=== PATIENT | male | born 1950 | race Caucasian/White ===

== ENCOUNTER 2022-01-10 09:27 | Inpatient (IN) ==
--- NOTE | 2022-01-10 09:46 | Emergency Department Note ---
Impression & Plan Wandering, Dementia, Elevated troponin, Elevated CPK ED Provider Note Provider: Feliciano Best MD DATE OF SERVICE: 01/10/2022 CHIEF COMPLAINT: Cofusion, found wandering HISTORY OF PRESENT ILLNESS: Patient is a 71-year-old gentleman history of dementia and hyperlipidemia brought by EMS today after being noted and found by neighbors that he was laying in their woodpile. EMS reports that neighbors evidently saw the patient walk in their yard around 715am this morning. Later went out and found him laying on the wood pile. Patient got here EMS reports that he told them that he was going to look at a horse. Patient evidently later then reported that he was in [facility]. Patient reports that he does live alone. He states he is unsure how he got outside. Unsure if he had breakfast this morning. Patient denies significant pain. EMS report the patient complained of his feet being cold and they tried to warn them. No other family members were noted at the area. Patient states he does have some known memory issues. Patient denies headache, chest pain, abdominal pain, nausea, or shortness of breath to me. REVIEW OF SYSTEMS: A total of 10 review of systems was obtained and negative except as stated above in the HPI. PAST MEDICAL HISTORY: As noted above MEDICATIONS: Reviewed medication listing from the medical record SOCIAL HISTORY: Lives by himself, smoking history PHYSICAL EXAM: GENERAL: alert and oriented to person in no acute distress on stretcher however is unsure of the events of this morning and states it is 2020 Head: normocephalic and atraumatic EYES: No injection, discharge or icterus. PERRL, EOMI. NECK: Trachea midline. Supple. ENT: Mucous membranes pink and moist. LUNGS: Airway patent. No retractions. Breath sounds clear HEART: Regular rate and rhythm. No chest wall tenderness ABDOMEN: Soft and non-tender, without guarding or rebound. SKIN: Patient with some scattered bruising in the upper extremities and a few small scattered abrasions on the lower extremities. There is some slight redness of the bursal aspect of both feet without significant contusion or any open wounds noted here. EXTREMITIES: Without swelling, tenderness or deformity lower extremities as above with some abrasions and some redness to bilateral feet. No crepitus. No open wounds. Distal feet are a little bit cool to touch. 1+ bilateral DP pulses. NEUROLOGICAL: No focal deficits. No aphasia. No facial droop or slurred speech. Normal strength and tone in the extremities. Sensation to gross touch normal EK bpm sinus rhythm with PVC. No acute ST segment elevation or depression with a QTC of 501. CONTINUOUS CARDIAC MONITORING: was ordered and showed a heart rate of 70s bpm in normal sinus rhythm GCS 15. Patient's laboratory studies and imaging reviewed. Differential includes Infection, dehydration, metabolic abnormality, hypo/hyperglycemia, electrolyte disturbance, anemia, hypoxia, cardiac sources, intracerebral event, toxicologic, neurologic, as well as other pathologies. IMPRESSION/MEDICAL DECISION MAKING: History of dementia. Found wandering. Reviewed prior medical record. Patient called with some scattered bruising and abrasions on exam. Basic labs were completed. X-rays of the feet given some erythema here. X-rays were reassuring for radiology. Chest x-ray without significant findings. CT head without acute findings. Question if this is his underlying dementia. Blood work however does show some evidence elevated troponin today as well as an elevated CPK. Given some IV fluid. Patient denies active chest pain. Do not see significant cardiac history documented and do not see evidence of prior troponins here. Given this discussed the patient initially with concerns for safety at home with a wondering if further observation to trend his troponin and CPK further observation here may be beneficial. Given a dose of aspirin. States is okay to the states he just on some ice cream. DIAGNOSIS: Wandering, elevated troponin, dementia, elevated CPK DISPOSITION: Hospitalist will evaluate Patient was agreeable with this plan. Past Med/Surg History Medical History Advanced dementia DX DEMENTIA, UNSPECIFIED AT CURRENT TIME Anxiety and depression Cerebrovascular disease 07/2019 MRI showed mild chronic cerebrovascular disease Had negative EEG 08/2019 GI problem GROWTH PROTRUDING INTO STOMACH, DIARRHEA - REASON FOR UPCOMING PROCEDURE Hyperlipidemia Hypertension HX, RESOLVED Mood disorder On Citalopram Toenail fungus Surgical History History of total knee replacement RIGHT Family History Sister Breast cancer Other Family history of cancer Family history of diabetes mellitus Denies family history of Ovarian cancer Myocardial infarction Lung cancer Stroke Social History Smoking Status: Current every day smoker Age Started Using Tobacco: 13; Cigarettes Per Day: NOT SURE /ADVISED NPO; Second Hand Exposure: No; Do You Dip or Chew Tobacco: No; Tobacco Cessation Education Requested by Patient: No Hx Alcohol Use: No Hx Substance Use: No Preferred Language: Bulgarian Communication Ability: Impaired Communication Ability Comment: unable to read and write d.t congnition Visual Impairment: No Limitations Hearing Ability: Normal Buttonhole Maker Required: No Beliefs That Will Affect Care: None marital status: Single Current Living Situation: Alone Current Living Situation Comment: sister and his friend dilma check on him 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 Other Information That Helps Us Care for You: No Feels Safe at Home: Yes Seatbelt Use: always Assistive Devices: Denture - Upper and Denture - Lower Allergies Allergies Allergy/AdvReac Type Severity Reaction Status Date / Time No Known Allergies Allergy Mild Verified 12/04/21 15:31 Home Meds Home Medications Medication Instructions Recorded Confirmed atorvastatin 10 mg tablet 10 mg PO QAM 09/30/21 01/10/22 dicyclomine 10 mg capsule 10 mg PO TID 09/30/21 01/10/22 ibuprofen 200 mg capsule 200 mg PO UD PRN 09/30/21 01/10/22 donepezil 10 mg tablet 10 mg PO DAILY 12/04/21 01/10/22 pantoprazole 20 mg tablet,delayed 20 ea PO DAILY 12/04/21 01/10/22 release ciclopirox 8 units 01/10/22 ciclopirox 8 % topical solution 1 applic TOPICAL DAILY 01/10/22 01/10/22 loperamide 2 mg tablet 2 mg PO DAILY 01/10/22 01/10/22 mirtazapine 15 mg tablet 15 mg PO DAILY 01/10/22 01/10/22 Results & Data (ED) Vital Signs Vital Signs - 24 hr 01/10/22 09:53 01/10/22 10:47 01/10/22 12:00 Temperature 37.0 C Temperature Source Oral Pulse Rate 75 Pulse Rate [Finger] 78 75 Pulse Rhythm [Finger] Regular Respiratory Rate 18 18 20 Respiratory Depth Normal Blood Pressure 156/103 H Blood Pressure [Left Arm] 148/87 H 144/73 H Blood Pressure Mean 120 Blood Pressure Mean [Left Arm] 107 96 Blood Pressure Position [Left Arm] Lying Pulse Oximetry 96 97 Oxygen Delivery Method Room Air Room Air Sepsis Recent Fever Within 48 Hours No Sepsis New/Unexplained Change in Mental Status No Sepsis Action Taken by Nursing No Action Required Laboratory Data Result diagrams: 01/10/22 09:35 01/10/22 09:35 Lab Results 01/10/22 01/10/22 01/10/22 Range/Units 09:35 09:35 09:35 WBC 7.98 (4.8-10.8) K/uL RBC 4.06 L (4.7-6.1) M/uL Hgb 14.1 (14.0-18.0) g/dL Hct 39.8 L (42-52) % MCV 98.0 (80-100) fL MCH 34.7 H (25-34) pg MCHC 35.4 (32-36) g/dL RDW Std Deviation 45.3 (36.4-46.3) fL RDW Coeff of Deon 12.7 (11.5-14.5) % Plt Count 237 (130-400) K/uL MPV 9.9 (7.4-10.4) fL Immature Gran % (Auto) 0.1 % Neut % (Auto) 79.9 % Lymph % (Auto) 10.5 % [place] % (Auto) 8.6 % Eos % (Auto) 0.6 % Baso % (Auto) 0.3 % Neut # (Auto) 6.37 (1.4-6.5) K/uL Lymph # (Auto) 0.84 L (1.2-3.4) K/uL [place] # (Auto) 0.69 H (0.11-0.59) K/uL Eos # (Auto) 0.05 (0-0.5) K/uL Baso # (Auto) 0.02 (0-0.2) K/uL Immature Gran # (Auto) 0.01 (0.00-0.02) K/uL PT 10.4 (9.0-12.0) Seconds INR 1.0 (0.9-1.1) Sodium (136-145) mmol/L Potassium (3.5-5.1) mmol/L Chloride (98-107) mmol/L Carbon Dioxide (21-32) mmol/L Anion Gap (3-11) BUN (6-23) mg/dl Creatinine (0.6-1.4) mg/dl Est Cr Clr Drug Dosing ml/min Est GFR ( Amer) ml/min Est GFR (Non-Af Amer) ml/min BUN/Creatinine Ratio (10-20) Glucose (70-99(Fasting)) mg/dl Calcium (8.5-10.1) mg/dl Magnesium (1.7-2.4) mg/dl Total Bilirubin (0.2-1.0) mg/dl AST (13-39) U/L ALT (7-52) U/L Alkaline Phosphatase (34-104) U/L Total Creatine Kinase (30-223) U/L Troponin I High Sens 134.4 H* (0-20) pg/ml Total Protein (6.0-8.3) gm/dl Albumin (3.4-5.0) gm/dl Globulin (2.5-4.0) gm/dl Albumin/Globulin Ratio (0.9-2) TSH (0.300-4.500) uIu/ml Urine Color Urine Appearance (Clear) Urine pH (4.5-7.5) Ur Specific [place] (1.000-1.030) Urine Protein (Negative) Urine Glucose (UA) (Negative) Urine Ketones (Negative) Urine Blood (Negative) Urine Nitrite (Negative) Urine Bilirubin (Negative) Urine Urobilinogen (Negative) Ur Leukocyte Esterase (Negative) SARS-CoV-2, RNA, NAAT (NEGATIVE) 01/10/22 01/10/22 01/10/22 Range/Units 09:35 09:35 09:49 WBC (4.8-10.8) K/uL RBC (4.7-6.1) M/uL Hgb (14.0-18.0) g/dL Hct (42-52) % MCV (80-100) fL MCH (25-34) pg MCHC (32-36) g/dL RDW Std Deviation (36.4-46.3) fL RDW Coeff of Deon (11.5-14.5) % Plt Count (130-400) K/uL MPV (7.4-10.4) fL Immature Gran % (Auto) % Neut % (Auto) % Lymph % (Auto) % [place] % (Auto) % Eos % (Auto) % Baso % (Auto) % Neut # (Auto) (1.4-6.5) K/uL Lymph # (Auto) (1.2-3.4) K/uL [place] # (Auto) (0.11-0.59) K/uL Eos # (Auto) (0-0.5) K/uL Baso # (Auto) (0-0.2) K/uL Immature Gran # (Auto) (0.00-0.02) K/uL PT (9.0-12.0) Seconds INR (0.9-1.1) Sodium 142 (136-145) mmol/L Potassium 3.5 (3.5-5.1) mmol/L Chloride 108 H (98-107) mmol/L Carbon Dioxide 28 (21-32) mmol/L Anion Gap 6 (3-11) BUN 24 H (6-23) mg/dl Creatinine 0.73 (0.6-1.4) mg/dl Est Cr Clr Drug Dosing 89.4 ml/min Est GFR ( Amer) 107.4 ml/min Est GFR (Non-Af Amer) 92.7 ml/min BUN/Creatinine Ratio 32.9 H (10-20) Glucose 100 H (70-99(Fasting)) mg/dl Calcium 9.2 (8.5-10.1) mg/dl Magnesium 2.0 (1.7-2.4) mg/dl Total Bilirubin 0.8 (0.2-1.0) mg/dl AST 28 (13-39) U/L ALT 23 (7-52) U/L Alkaline Phosphatase 63 (34-104) U/L Total Creatine Kinase 664 H (30-223) U/L Troponin I High Sens (0-20) pg/ml Total Protein 6.4 (6.0-8.3) gm/dl Albumin 4.0 (3.4-5.0) gm/dl Globulin 2.4 L (2.5-4.0) gm/dl Albumin/Globulin Ratio 1.7 (0.9-2) TSH 1.406 (0.300-4.500) uIu/ml Urine Color Urine Appearance (Clear) Urine pH (4.5-7.5) Ur Specific [place] (1.000-1.030) Urine Protein (Negative) Urine Glucose (UA) (Negative) Urine Ketones (Negative) Urine Blood (Negative) Urine Nitrite (Negative) Urine Bilirubin (Negative) Urine Urobilinogen (Negative) Ur Leukocyte Esterase (Negative) SARS-CoV-2, RNA, NAAT NEGATIVE (NEGATIVE) 01/10/22 Range/Units 12:22 WBC (4.8-10.8) K/uL RBC (4.7-6.1) M/uL Hgb (14.0-18.0) g/dL Hct (42-52) % MCV (80-100) fL MCH (25-34) pg MCHC (32-36) g/dL RDW Std Deviation (36.4-46.3) fL RDW Coeff of Deon (11.5-14.5) % Plt Count (130-400) K/uL MPV (7.4-10.4) fL Immature Gran % (Auto) % Neut % (Auto) % Lymph % (Auto) % [place] % (Auto) % Eos % (Auto) % Baso % (Auto) % Neut # (Auto) (1.4-6.5) K/uL Lymph # (Auto) (1.2-3.4) K/uL [place] # (Auto) (0.11-0.59) K/uL Eos # (Auto) (0-0.5) K/uL Baso # (Auto) (0-0.2) K/uL Immature Gran # (Auto) (0.00-0.02) K/uL PT (9.0-12.0) Seconds INR (0.9-1.1) Sodium (136-145) mmol/L Potassium (3.5-5.1) mmol/L Chloride (98-107) mmol/L Carbon Dioxide (21-32) mmol/L Anion Gap (3-11) BUN (6-23) mg/dl Creatinine (0.6-1.4) mg/dl Est Cr Clr Drug Dosing ml/min Est GFR ( Amer) ml/min Est GFR (Non-Af Amer) ml/min BUN/Creatinine Ratio (10-20) Glucose (70-99(Fasting)) mg/dl Calcium (8.5-10.1) mg/dl Magnesium (1.7-2.4) mg/dl Total Bilirubin (0.2-1.0) mg/dl AST (13-39) U/L ALT (7-52) U/L Alkaline Phosphatase (34-104) U/L Total Creatine Kinase (30-223) U/L Troponin I High Sens (0-20) pg/ml Total Protein (6.0-8.3) gm/dl Albumin (3.4-5.0) gm/dl Globulin (2.5-4.0) gm/dl Albumin/Globulin Ratio (0.9-2) TSH (0.300-4.500) uIu/ml Urine Color Yellow Urine Appearance Clear (Clear) Urine pH 8.0 H (4.5-7.5) Ur Specific [place] 1.015 (1.000-1.030) Urine Protein Negative (Negative) Urine Glucose (UA) Negative (Negative) Urine Ketones Negative (Negative) Urine Blood Negative (Negative) Urine Nitrite Negative (Negative) Urine Bilirubin Negative (Negative) Urine Urobilinogen Negative (Negative) Ur Leukocyte Esterase Negative (Negative) SARS-CoV-2, RNA, NAAT (NEGATIVE) Administered Medications Dicyclomine HCl (Dicyclomine Hcl 10 Mg Cap) 10 mg PO TID AMANDO Stop: 02/09/22 14:59 Last Admin: 01/10/22 16:52 Dose: 10 mg Documented by: [id number] Sodium Chloride (Nss 1000ml) 1,000 mls @ 125 mls/hr IV .Q8H AMANDO Stop: 01/11/22 14:59 Last Admin: 01/10/22 16:55 Dose: 125 mls/hr Documented by: [id number] Mirtazapine (Mirtazapine Tab 15 Mg Tab) 15 mg PO DAILY AMANDO Stop: 02/09/22 14:59 Last Admin: 01/10/22 16:52 Dose: 15 mg Documented by: [id number] Miscellaneous (Ciclopirox 8%: Order Awaiting Action) 1 ea N/A QS AMANDO Stop: 02/09/22 15:59 Last Admin: 01/10/22 17:26 Dose: Not Given Documented by: [id number] Discontinued Medications Aspirin (Aspirin 81 Mg Chew) 324 mg PO NOW STA Stop: 01/10/22 11:08 Last Admin: 01/10/22 11:17 Dose: 324 mg Documented by: [id number] Sodium Chloride (Nss 1000ml) 1,000 mls @ 999 mls/hr IV .Q1H1M ONE Stop: 01/10/22 11:37 Last Infusion: 01/10/22 11:53 Dose: 0 mls/hr Documented by: [id number] Admin: 01/10/22 10:51 Dose: 999 mls/hr Documented by: [id number] Imaging Data Radiologist's Impression: Chest X-Ray 01/10/22 09:41 XR chest 1V portable CLINICAL HISTORY: confusion COMPARISON STUDY: Chest radiograph June 04, 2008. FINDINGS: Skin fold projects over the left chest. No pneumothorax or pleural effusion is present. Mild cardiomegaly is noted without evidence for pulmonary edema. There is a possible hiatal hernia. There is no consolidation to suggest pneumonia. IMPRESSION: 1. No acute cardiopulmonary findings. 2. Possible hiatal hernia. ACT 112: Negative or not required by law. Electronically signed by: Yosef Miller M.D. 01/10/2022 10:[address] 01/10/22 09:41 CT OF THE HEAD WITHOUT CONTRAST CLINICAL HISTORY: Confusion. COMPARISON STUDY: MRI of the brain August 14, 2019. CT DOSE: 614.27 mGy.cm TECHNIQUE: Helical axial images of the head were obtained without IV contrast. Automated exposure control was utilized for the study. A dose lowering technique was utilized adhering to the principles of ALARA. FINDINGS: No acute intracranial hemorrhage, midline shift or mass effect is present. The ventricular system is unremarkable. White matter hypodensity suggests small vessel disease. The basal cisterns are patent. No extra-axial collections are present. There are no findings to suggest acute dural sinus thrombosis or acute territorial infarct. No significant calvarial abnormalities are present. Visualized portions of the sinuses and mastoid air cells are clear. IMPRESSION: No acute intracranial findings. ACT 112: Negative or not required by law. Electronically signed by: Yosef Miller M.D. 01/10/2022 10:02 AM Foot X-Ray 01/10/22 09:44 XR foot LT min 3V routine CLINICAL HISTORY: redness, ?contusion COMPARISON: None FINDINGS: Tarsometatarsal joints are intact. No acute fracture within the left foot is noted. There is no radiographic evidence for acute osteomyelitis within the left foot. Moderate degenerative changes of the interphalangeal joint of the left great toe are present. There is mild osteophytosis of the left first metatarsophalangeal joint. IMPRESSION: No acute fracture or dislocation within the left foot. No evidence for acute osteomyelitis. ACT 112: Negative or not required by law. Electronically signed by: Yosef Miller M.D. 01/10/2022 10:54 AM Foot X-Ray 01/10/22 09:44 XR foot RT min 3V routine CLINICAL HISTORY: redness, ?contusion COMPARISON: None FINDINGS: Tarsometatarsal joints are intact. No acute fracture within the right foot is noted. There is an old, healed fracture of the proximal phalanx of the right fifth toe. No evidence for acute osteomyelitis. Moderate degenerative changes are noted within several articulations of the right foot. Sclerotic focus within the distal tuft of the distal phalanx of the right second toe is benign. IMPRESSION: No acute fracture or dislocation within the right foot. No radiographic evidence for acute osteomyelitis. ACT 112: Negative or not required by law. Electronically signed by: Yosef Miller M.D. 01/10/2022 10:53 AM Discharge Plan Visit Data Chief Complaint: Confusion Stated Complaint: AMS ED Provider: Feliciano Best Discharge Problem: Wandering, Dementia, Elevated troponin, Elevated CPK Patient Disposition: Admitted As Inpatient Discharge Instructions Interventions: ED Discharge Assessment Last Done: 01/10/22 13:39 Discharge Problem: Dementia Qualifiers: Dementia type: unspecified type Dementia behavioral disturbance: without behavioral disturbance Qualified Code(s): F03.90 - Unspecified dementia without behavioral disturbance
[2022-01-10 09:56] LABS: Basophils # (auto) 0.02 K/uL (0-0.2); Basophils % (auto) 0.3 %; Eosinophils # (auto) 0.05 K/uL (0-0.5); Eosinophils % (auto) 0.6 %; Hematocrit (blood only) 39.8 % (42-52); Hemoglobin 14.1 g/dL (14.0-18.0); Immature Granulocytes # (auto) 0.01 K/uL (0.00-0.02); Immature Granulocytes % (auto) 0.1 %; Lymphocytes # (auto) 0.84 K/uL (1.2-3.4); Lymphocytes % (auto) 10.5 %; Mean Corpuscular Hemoglobin 34.7 pg (25-34); Mean Corpuscular Hgb Conc 35.4 g/dL (32-36); Mean Platelet Volume 9.9 fL (7.4-10.4); Monocytes # (auto) 0.69 K/uL (0.11-0.59); Monocytes % (auto) 8.6 %; Neutrophils # (auto) 6.37 K/uL (1.4-6.5); Neutrophils % (auto) 79.9 %; Platelet Count 237 K/uL (130-400); RDW Coefficient of Variation 12.7 % (11.5-14.5); RDW Standard Deviation 45.3 fL (36.4-46.3); Red Blood Count 4.06 M/uL (4.7-6.1); White Blood Count 7.98 K/uL (4.8-10.8)
[2022-01-10 10:02] LABS: Prothrombin Time 10.4 Seconds (9.0-12.0)
--- NOTE | 2022-01-10 10:05 | CT Scan Report ---
CT OF THE HEAD WITHOUT CONTRAST CLINICAL HISTORY: Confusion. COMPARISON STUDY: MRI of the brain August 14, 2019. CT DOSE: 614.27 mGy.cm TECHNIQUE: Helical axial images of the head were obtained without IV contrast. Automated exposure con trol was utilized for the study. A dose lowering technique was utilized adhering to the principles o f ALARA. FINDINGS: No acute intracranial hemorrhage, midline shift or mass effect is present. The ventricular system is unremarkable. White matter hypodensity suggests small vessel disease. The basal cisterns ar e patent. No extra-axial collections are present. There are no findings to suggest acute dural sinus thrombosis or acute territorial infarct. No significant calvarial abnormalities are present. Visualiz ed portions of the sinuses and mastoid air cells are clear. IMPRESSION: No acute intracranial findings. ACT 112: Negative or not required by law. Electronically signed by: Yosef Miller M.D. 01/10/2022 10:02 AM
[2022-01-10 10:22] LABS: Albumin Globulin Ratio 1.7 (0.9-2); BUN Creatinine Ratio 32.9 (10-20); Bilirubin,Total 0.8 mg/dl (0.2-1.0); Calcium 9.2 mg/dl (8.5-10.1); Creatinine Clr Calc Pharmacy 89.4 ml/min; Est GFR (African American) 107.4 ml/min; Est GFR (Non-African American) 92.7 ml/min; Globulin 2.4 gm/dl (2.5-4.0); Potassium 3.5 mmol/L (3.5-5.1); Total Protein 6.4 gm/dl (6.0-8.3)
[2022-01-10] MEDS ORDERED: SODIUM CHLORIDE 0.9% 1000ML 1,000 ML IV ONE (10:37)
--- NOTE | 2022-01-10 10:48 | XRay Report ---
XR chest 1V portable CLINICAL HISTORY: confusion COMPARISON STUDY: Chest radiograph June 04, 2008. FINDINGS: Skin fold projects over the left chest. No pneumothorax or pleural effusion is present. Mil d cardiomegaly is noted without evidence for pulmonary edema. There is a possible hiatal hernia. Ther e is no consolidation to suggest pneumonia. IMPRESSION: 1. No acute cardiopulmonary findings. 2. Possible hiatal hernia. ACT 112: Negative or not required by law. Electronically signed by: Yosef Miller M.D. 01/10/2022 10:46 AM
--- NOTE | 2022-01-10 10:55 | XRay Report ---
XR foot LT min 3V routine CLINICAL HISTORY: redness, ?contusion COMPARISON: None FINDINGS: Tarsometatarsal joints are intact. No acute fracture within the left foot is noted. There is no radiographic evidence for acute osteomyelitis within the left foot. Moderate degenerative reyes es of the interphalangeal joint of the left great toe are present. There is mild osteophytosis of the left first metatarsophalangeal joint. IMPRESSION: No acute fracture or dislocation within the left foot. No evidence for acute osteomyeliti s. ACT 112: Negative or not required by law. Electronically signed by: Yosef Miller M.D. 01/10/2022 10:54 AM
--- NOTE | 2022-01-10 10:55 | XRay Report ---
XR foot RT min 3V routine CLINICAL HISTORY: redness, ?contusion COMPARISON: None FINDINGS: Tarsometatarsal joints are intact. No acute fracture within the right foot is noted. There is an old, healed fracture of the proximal phalanx of the right fifth toe. No evidence for acute ost eomyelitis. Moderate degenerative changes are noted within several articulations of the right foot. Sclerotic focus within the distal tuft of the distal phalanx of the right second toe is benign. IMPRESSION: No acute fracture or dislocation within the right foot. No radiographic evidence for acut e osteomyelitis. ACT 112: Negative or not required by law. Electronically signed by: Yosef Miller M.D. 01/10/2022 10:53 AM
[2022-01-10] MEDS ORDERED: ASPIRIN 81 MG CHEW PO STA (11:07)
[2022-01-10 12:50] LABS: Appearance Urine Clear (Clear); Bilirubin Urine Negative (Negative); Blood Urine Negative (Negative); Color Urine Yellow; Glucose Urine UA Negative (Negative); Ketones Urine Negative (Negative); Leukocyte Esterase Urine Negative (Negative); Nitrite Urine Negative (Negative); Protein Urine Negative (Negative); Specific Gravity Urine 1.015 (1.000-1.030); Urobilinogen Urine Negative (Negative)
--- NOTE | 2022-01-10 13:26 | Electrocardiogram Report ---
Test Reason : Blood Pressure : / mmHG Vent. Rate : 078 BPM Atrial Rate : 078 BPM P-R Int : 158 ms QRS Dur : 078 ms QT Int : 440 ms P-R-T Axes : -03 018 031 degrees QTc Int : 501 ms Poor data quality, interpretation may be adversely affected Sinus rhythm with occasional Premature ventricular complexes Prolonged QT Abnormal ECG When compared with ECG of 01-OCT-2021 09:07, Premature ventricular complexes are now Present Confirmed by Ravi García ([id number]) on 01/10/2022 1:25:38 PM Referred By: Confirmed By:Ravi García
--- NOTE | 2022-01-10 14:15 | History and Physical Report ---
DATE OF ADMISSION: 01/10/2022. CHIEF COMPLAINT: Confusion. HISTORY OF PRESENT ILLNESS: This is a 71-year-old male with past medical history significant for hypercholesterolemia, hypertension, history of CVA, history of GERD, history of mood disorder, history of dementia without behavioral disturbance, comes with confusion. The patient is following with neurology and it looks like he also got neuropsychological testing from 09/17/20[address] at [facility] [address] Fonseca. It looks like he has at least major neurocognitive disorder, unspecified, of moderate severity. It is particularly affecting his executive function, motor control, memory, and alternative attention impulsivity and conceptualization. It looks like the patient's medication citalopram was changed to mirtazapine, and he was also on donepezil and Namenda was added. The patient lives alone. Sister checks on him. Sister says after starting Namenda he got more hallucinations. They stopped giving it to him and also she stayed with him on last Wednesday and Wednesday and on Wednesday was doing okay, so she went to take care of her . Sister says someone comes to check on him every day to give him medications, to give him food and check on him. He eats regular food. Ambulates without support, but is having some ambulatory dysfunction lately,also seems lately requiring more assistance with feeding and dressing.. He is eating and swallowing okay. Today, he was found by his neighbors, the neighbors found him in their yard around 7:15 a.m. and later they found him sleeping in the wooden pile and EMS brought him here. In the ER, CT of the head was okay. There were some bruises on his feet. Foot x-ray was okay. Chest x-ray looks okay. Hemodynamically stable. Labs are mostly unremarkable except troponin high sensitivity was 134 and total creatinine kinase 664. Urinalysis pending. SARS-CoV-2 rapid test is negative. The patient is currently resting comfortably. Can tell his name, knows his date of , but does not know that he is in the hospital and could not tell which month is this, but able to obey simple commands. Denies any headache, denies any chest pain, denies any shortness of breath. Denies nausea, denies abdominal pain. Says he has ongoing diarrhea for some time and states he ambulates without any support. Says his urination has decreased slightly. ALLERGIES: No known drug allergies. PAST MEDICAL HISTORY: As mentioned above. PAST SURGICAL HISTORY: Right total knee arthroplasty, colonoscopy, EGDs, right knee meniscectomy. MEDICATIONS: The patient is on atorvastatin 10 mg p.o. a.m., dicyclomine 10 mg p.o. t.i.d., donepezil 10 mg p.o. daily, ibuprofen p.r.n., mirtazapine 50 mg p.o. daily, Protonix 20 mg p.o. daily. FAMILY HISTORY: Significant for brother has alcoholism; sister has arthritis, breast cancer, dementia, diabetes, hyperlipidemia; uncle has prostate cancer; father had heart disorder at age of 37; mother has dementia. SOCIAL HISTORY: He currently lives alone. He smoked cigars in the past. Currently, no alcoholism. No drug use. REVIEW OF SYSTEMS: Could not get review of systems as the patient is confused. PHYSICAL EXAMINATION: GENERAL: The patient is of moderate build, not in acute distress. VITAL SIGNS: Temperature 37, pulse 75, respiratory rate 20, blood pressure 144/73, oxygen 97% on room air. HEENT: Pupils equal, round and reactive to light. Oral mucosa moist. LUNGS: No JVD, no neck masses. CARDIOVASCULAR: S1 and S2 heard. Regular rate and rhythm. No murmur, no gallop. RESPIRATORY SYSTEM: Normal AP diameter. No accessory muscle use. No wheezing, no crackles. ABDOMEN: Soft. Bowel sounds are present, nontender, no distention. CENTRAL NERVOUS SYSTEM: Alert and oriented to name only. Speech is clear. No facial droop. Obeys simple commands. Moves extremities. EXTREMITIES: Bilateral lower extremity bruise seen on the feet, more on the left side. No edema or erythema seen. LABORATORY: WBC 7.9, hemoglobin 14.1, hematocrit 39.8, platelets 237. PT 10.4, INR 1. Sodium 142, potassium 3.5, chloride 108, CO2 of 28, BUN 24, creatinine 0.7, serum glucose 100, calcium 9.2, magnesium 2, total bilirubin 0.8, AST 28, ALT 23, alkaline phosphatase 63, total creatine kinase 664. Troponin I high sensitivity 134. TSH 1.4. Urinalysis pending. SARS-CoV-2 rapid test negative. IMAGING DATA: Right foot x-ray, no acute findings. Let foot x-ray, no acute findings. CT of the head, no acute intracranial findings. Chest x-ray, no acute findings, possible hiatal hernia. EKG: Sinus rhythm with occasional PVCs at a rate of 78, prolonged QTc at 501. ASSESSMENT AND PLAN: This is a 71-year-old male who presents with confusion. 1. Confusion: Most likely worsening dementia. Will rule out transient ischemic attack, cerebrovascular accident, with MRI scan. CT of the head is okay. Labs look okay. Will follow urinalysis. Monitor in the medical floor. Neurology consult in the a.m. The patient is having dementia and he is on mirtazapine and donepezil. Recently, Namenda was added, but it was stopped by the family as the patient is getting hallucinations. Await neurology input. Social Service to help with discharge planning. The patient may need more help at home versus detention placement. May need office of aging help.Monitor for delerium 2. History of hyperlipidemia: Continue statin. 3. History of mood disorder: Continue mirtazapine. 4. Gastroesophageal reflux disease: Continue Protonix. 5. History of hypertension: Currently not on any medication. Will monitor the blood pressure. 6. History of cerebrovascular accident: On statin. The patient was given a dose of aspirin in the ER. Will continue with the baby aspirin. Follow the MRI scan. 7. Elevated troponin. EKG ok. denies any syptoms.Will follow serial CE and echo. 8. Mild elevation cpk. Getting fluids. Follow repeat levels. 9. Prolonged QT. QTC 503. Avod Qt prolonging drugs. Will follow repeat ekg. 10.. Deep venous thrombosis prophylaxis: Sequential compression devices and heparin subQ. DISPOSITION: Closely monitor in the medical floor. PT/OT prior to discharge. Social Service to help with discharge planning. CODE STATUS: DNR/DNI as per my discussion with the sister. Job ID: [id number] [facility]
[2022-01-10] MEDS ORDERED: ACETAMINOPHEN 325 MG TAB PO PRN (15:00)
[2022-01-10] MEDS: MIRTAZAPINE TAB 15 MG TAB PO SCH (16:52)
[2022-01-10] MEDS: DICYCLOMINE HCL 10 MG CAP PO SCH ×2 (16:52→19:28)
[2022-01-10] MEDS: SODIUM CHLORIDE 0.9% 1000ML 1,000 ML IV SCH (16:55)
[2022-01-10] MEDS ORDERED: OLANZapine 10 MG/2.1 ML SDV IM STA (17:55)
[2022-01-10] MEDS: HEPARIN SOD 5,000 UNIT/0.5 ML VIAL SQ SCH (20:21)
[2022-01-11] MEDS ORDERED: SODIUM CHLORIDE 0.9% 1000ML 1,000 ML IV ONE (02:02)
[2022-01-11] MEDS: SODIUM CHLORIDE 0.9% 1000ML 1,000 ML IV SCH ×2 (02:21→19:00)
[2022-01-11] MEDS ORDERED: OLANZAPINE 2.5 MG TAB PO STA (02:32)
[2022-01-11 05:49] LABS: Basophils # (auto) 0.05 K/uL (0-0.2); Basophils % (auto) 0.8 %; Eosinophils # (auto) 0.38 K/uL (0-0.5); Eosinophils % (auto) 6.1 %; Hematocrit (blood only) 43.2 % (42-52); Hemoglobin 14.7 g/dL (14.0-18.0); Immature Granulocytes # (auto) 0.01 K/uL (0.00-0.02); Immature Granulocytes % (auto) 0.2 %; Lymphocytes # (auto) 1.34 K/uL (1.2-3.4); Lymphocytes % (auto) 21.6 %; Mean Corpuscular Hemoglobin 33.2 pg (25-34); Mean Corpuscular Volume 97.5 fL (80-100); Mean Platelet Volume 9.7 fL (7.4-10.4); Monocytes # (auto) 0.51 K/uL (0.11-0.59); Monocytes % (auto) 8.2 %; Neutrophils % (auto) 63.1 %; Platelet Count 228 K/uL (130-400); RDW Coefficient of Variation 12.9 % (11.5-14.5); RDW Standard Deviation 45.9 fL (36.4-46.3); Red Blood Count 4.43 M/uL (4.7-6.1); White Blood Count 6.19 K/uL (4.8-10.8)
[2022-01-11 06:04] LABS: Calcium 8.8 mg/dl (8.5-10.1); Est GFR (African American) 118.1 ml/min; Est GFR (Non-African American) 101.9 ml/min; Potassium 3.3 mmol/L (3.5-5.1)
[2022-01-11 06:14] LABS: Troponin I High Sensitivity 195.5 pg/ml (0-20)
[2022-01-11] MEDS: OLANZapine 10 MG/2.1 ML SDV IM PRN ×3 (07:24→20:17)
[2022-01-11] MEDS: PANTOprazole 40 MG TAB PO SCH (07:33)
[2022-01-11] MEDS: DONEPEZIL HCL 10 MG TAB PO SCH (07:33)
[2022-01-11] MEDS: MIRTAZAPINE TAB 15 MG TAB PO SCH (07:33)
[2022-01-11] MEDS: ASPIRIN 81 MG ECTAB PO SCH (07:33)
[2022-01-11] MEDS: DICYCLOMINE HCL 10 MG CAP PO SCH ×3 (07:33→20:18)
[2022-01-11] MEDS: HEPARIN SOD 5,000 UNIT/0.5 ML VIAL SQ SCH ×2 (07:34→20:07)
[2022-01-11] MEDS: ADVANCED PROBIOTIC 1250 MG CAPSULE PO SCH (07:34)
[2022-01-11] MEDS: ATORVASTATIN 10 MG TAB PO SCH (07:34)
[2022-01-11] MEDS ORDERED: POTASSIUM CHLORIDE CRTAB 20 MEQ TABCR PO STA (09:28)
[2022-01-11] MEDS ORDERED: levETIRAcetam 1,500 MG in 0.9 % SODIUM CHLORIDE 100 ML IV STA (14:52)
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
[2022-01-11] MEDS ORDERED: PIPERACILL/TAZOBAC CONSULT ACTIVE PRN (18:51)
[2022-01-11] MEDS ORDERED: PIPERACILLIN/TAZOBACTAM 3.375 GM in DEXTROSE 5% 100 ML IV ONE (19:00)
[2022-01-11 20:03] LABS: Appearance Urine Clear (Clear); Bacteria Urine Automated Negative (Negative); Bilirubin Urine Negative (Negative); Blood Urine 3+ (Negative); Color Urine Yellow; Glucose Urine UA Negative (Negative); Ketones Urine 3+ (Negative); Leukocyte Esterase Urine Negative (Negative); Nitrite Urine Negative (Negative); Protein Urine Negative (Negative); RBC Urine Automated >30 /hpf (0-4); Specific Gravity Urine 1.018 (1.000-1.030); Urobilinogen Urine Negative (Negative); pH Urine 6.5 (4.5-7.5)
[2022-01-11] MEDS: MELATONIN 3 MG TAB PO SCH (20:06)
[2022-01-11] MEDS: levETIRAcetam 500 MG in 0.9 % SODIUM CHLORIDE 100 ML IV SCH (21:40)
[2022-01-11] MEDS: PIPERACILLIN/TAZOBACTAM 3.375 GM in DEXTROSE 5% 100 ML IV SCH (23:52)
[2022-01-12] MEDS ORDERED: XOPENEX/ATROVENT 1.25mg/0.5MG NEB COMBO NEB STA (01:20)
[2022-01-12] MEDS ORDERED: IPRATROPIUM BROMIDE NEB SOLN 0.02% 2.5 ML VIAL INH STA (01:25)
[2022-01-12] MEDS ORDERED: LEVALBUTEROL 1.25MG/0.5ML NEB INH STA (01:26)
[2022-01-12] MEDS ORDERED: methylPREDNISolone 20 MG in SYRINGE 0 ML IV STA (01:27)
[2022-01-12 02:22] LABS: Basophils # (auto) 0.01 K/uL (0-0.2); Basophils % (auto) 0.1 %; Hematocrit (blood only) 45.2 % (42-52); Hemoglobin 15.5 g/dL (14.0-18.0); Immature Granulocytes # (auto) 0.02 K/uL (0.00-0.02); Immature Granulocytes % (auto) 0.2 %; Lymphocytes # (auto) 0.42 K/uL (1.2-3.4); Lymphocytes % (auto) 4.4 %; Mean Corpuscular Hemoglobin 33.3 pg (25-34); Mean Corpuscular Hgb Conc 34.3 g/dL (32-36); Mean Corpuscular Volume 97.2 fL (80-100); Monocytes # (auto) 0.57 K/uL (0.11-0.59); Neutrophils # (auto) 8.51 K/uL (1.4-6.5); Neutrophils % (auto) 89.3 %; Platelet Count 243 K/uL (130-400); RDW Coefficient of Variation 12.7 % (11.5-14.5); RDW Standard Deviation 44.6 fL (36.4-46.3); Red Blood Count 4.65 M/uL (4.7-6.1); White Blood Count 9.53 K/uL (4.8-10.8)
[2022-01-12 02:46] LABS: BUN Creatinine Ratio 17.4 (10-20); Calcium 8.7 mg/dl (8.5-10.1); Creatinine Clr Calc Pharmacy 88.3 ml/min; Est GFR (African American) 109.9 ml/min; Est GFR (Non-African American) 94.8 ml/min; Magnesium 1.9 mg/dl (1.7-2.4); Phosphorus 3.9 mg/dl (2.5-4.9); Potassium 3.9 mmol/L (3.5-5.1)
[2022-01-12] MEDS ORDERED: MAGNESIUM SULFATE / D5W 1 GM/100 ML BAG IV ONE (05:15)
--- NOTE | 2022-01-12 07:55 | XRay Report ---
XR chest 1V portable CLINICAL HISTORY: Coarse breath sounds. COMPARISON STUDY: 01/10/2022 TECHNIQUE: 1 view of the chest FINDINGS: Single frontal view of the chest demonstrates the cardiomediastinal silhouette to be within normal li mits. Compared to the previous examination, there has been interval development of a patchy alveolar opacity within the right lower lobe. The findings are characteristic of interval pneumonia. The remai nder of the lungs are clear. There is no evidence for pleural effusion. There is no evidence for vasc ular congestion. There is no acute osseous pathology. IMPRESSION: 1. Interval development of alveolar opacity within the right lower lobe characteristic of interval pn eumonia. ACT 112: Negative or not required by law. Electronically signed by: Jerson Norman M.D. 01/12/2022 7:53 AM
[2022-01-12] MEDS: PIPERACILLIN/TAZOBACTAM 3.375 GM in DEXTROSE 5% 100 ML IV SCH ×3 (08:50→23:48)
[2022-01-12] MEDS: SODIUM CHLORIDE 0.9% 1000ML 1,000 ML IV SCH (08:53)
[2022-01-12] MEDS: ASPIRIN 81 MG ECTAB PO SCH (09:18)
[2022-01-12] MEDS: ATORVASTATIN 10 MG TAB PO SCH (09:18)
[2022-01-12] MEDS: MIRTAZAPINE TAB 15 MG TAB PO SCH (09:18)
[2022-01-12] MEDS: DONEPEZIL HCL 10 MG TAB PO SCH (09:18)
[2022-01-12] MEDS: ADVANCED PROBIOTIC 1250 MG CAPSULE PO SCH (09:18)
[2022-01-12] MEDS: DICYCLOMINE HCL 10 MG CAP PO SCH ×3 (09:18→19:24)
[2022-01-12] MEDS: PANTOprazole 40 MG TAB PO SCH (09:18)
[2022-01-12] MEDS: levETIRAcetam 500 MG in 0.9 % SODIUM CHLORIDE 100 ML IV SCH (09:40)
[2022-01-12] MEDS: HEPARIN SOD 5,000 UNIT/0.5 ML VIAL SQ SCH ×2 (10:02→19:22)
--- NOTE | 2022-01-12 10:16 | Neurology Consultation ---
Date of Consultation January 12, 2022 Assessment & Plan (1) Dementia: (2) Seizure-like activity: This patient has advanced dementia, progressive. Patient has a right lower lobe pneumonia and, starting yesterday, developed abnormal movements that may represent seizures, but it appears to be myoclonic in nature to me. He is very sleepy and difficult to arouse. He will arouse for a few seconds and then goes back to sleep. He is not speaking or following commands. I suspect this may have to do with medication including olanzapine. Recommendations: 1. Discontinue mirtazapine 2. Avoid RECEPTION AGENT acting medications, as much as possible, including neuroleptics such as olanzapine 3. discontinue levetiracetam. This will not cover myoclonic jerks as well and may lead to irritability 4. Depakote 250 milligrams IV q.6 hours. 5. EEG is pending. 6. I am not sure this patient will be able to undergo an MRI of the brain unless sedated. 7. I will follow. Overall, I spent a total of 60 minutes with this case including review of records, direct evaluation the patient bedside, and dicussion of the case with the RN at bedside, Dr. Palma, including differential diagnosis and treatment options. History of Present Illness Reason for Consultation: Patient is a 71-year-old, who I was asked to see at the request of Dr. Palma, for neurologic consultation regarding dementia and seizures. Requesting Physician: Dr. Palma Attending Physician: Alysa Palma MD History of Present Illness Patient is followed by Dr. Chance, last seen in November of 2021, for advanced dementia. Patient had neuro psychological testing by Dr. Fonseca earlier this year which showed a major neurocognitive deficit with frontal and subcortical involvement. This is either frontotemporal dementia, Lewy body dementia, or atypical Alzheimer's. The patient was given donepezil 10 milligrams a day. He was started on Namenda in November but this was stopped 2 weeks ago because of "increased confusion". he was initiated on mirtazapine at the request of the neuropsychologist. The patient was admitted to the hospital January 10 after being found laying on a wood pile in a neighbor's yard being very confused. In the emergency room blood pressure was 156/103 with a CK of 964. CBC and Chem profile was otherwise unremarkable TSH was 1.4 an urinalysis was negative. Chest x-ray was remarkable for right lower lobe infiltrate which is worse today consistent with pneumonia. This may be aspiration. CT scan of the head was unremarkable Echocardiogram was unremarkable The patient has been confused and not functioning well in the hospital being combative and having trouble ambulating. on December 12, somewhere around 3-4 p.m , the patient was noted by the RN to have twitching movements of a stiffening nature lasting 3-4 seconds intermittently in the arms and legs occurring at intervals every few minutes. He was given levetiracetam IV. An MRI could not be obtained because of his agitation. He was given multiple doses of olanzapine. This morning nursing states that he has had much less in the way of twitching and abnormal movements. He is very sleepy and is difficult to arouse. Allergies Allergy/AdvReac Type Severity Reaction Status Date / Time No Known Allergies Allergy Mild Verified 12/04/21 15:31 Home Medications Medication Instructions Recorded Confirmed Type atorvastatin 10 mg tablet 10 mg PO QAM 09/30/21 01/10/22 History dicyclomine 10 mg capsule 10 mg PO TID 09/30/21 01/10/22 History ibuprofen 200 mg capsule 200 mg PO UD PRN 09/30/21 01/10/22 History donepezil 10 mg tablet 10 mg PO DAILY 12/04/21 01/10/22 History pantoprazole 20 mg tablet,delayed 20 ea PO DAILY 12/04/21 01/10/22 History release ciclopirox 8 units 01/10/22 History ciclopirox 8 % topical solution 1 applic TOPICAL DAILY 01/10/22 01/10/22 History loperamide 2 mg tablet 2 mg PO DAILY 01/10/22 01/10/22 History mirtazapine 15 mg tablet 15 mg PO DAILY 01/10/22 01/10/22 History Patient History Medical History Advanced dementia DX DEMENTIA, UNSPECIFIED AT CURRENT TIME Anxiety and depression Cerebrovascular disease 07/2019 MRI showed mild chronic cerebrovascular disease Had negative EEG 08/2019 GI problem GROWTH PROTRUDING INTO STOMACH, DIARRHEA - REASON FOR UPCOMING PROCEDURE Hyperlipidemia Hypertension HX, RESOLVED Mood disorder On Citalopram Toenail fungus Surgical History History of total knee replacement RIGHT Family History Sister Breast cancer Other Family history of cancer Family history of diabetes mellitus Denies family history of Ovarian cancer Myocardial infarction Lung cancer Stroke Social History Smoking Status: Current every day smoker Age Started Using Tobacco: 13; Cigarettes Per Day: NOT SURE /ADVISED NPO; Second Hand Exposure: No; Do You Dip or Chew Tobacco: No; Tobacco Cessation Education Requested by Patient: No Hx Alcohol Use: No Hx Substance Use: No Preferred Language: Slovak Communication Ability: Effective Communication Ability Comment: unable to read and write d.t congnition Visual Impairment: No Limitations Hearing Ability: Normal Gas Maker Helper Required: No Beliefs That Will Affect Care: None marital status: Single Current Living Situation: Alone Current Living Situation Comment: sister and his friend dilma check on him 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 He will have occasional myoclonic jerks of the arms or legs. He makes no movements or arousal with clapping but will open his eyes to voice and gentle shaking. He tries to mumble to answer questions but he does not formulate any words and goes right back to sleep with his eyes closed. Eyes are front pupils are 4 millimeters bilaterally and reactive to light. He has positive oculocephalics. There is no facial droop. Tongue is midline. Neck is supple. The patient has myoclonic jerks of the limbs randomly throughout from time to time. He has no seizure activity or repetitive activity otherwise. Tone in his limbs is symmetrical and there is some resistance with movement. Reflexes are 0/4 throughout all 4 limbs. Toes are downgoing to plantar stimulation bilaterally and there is withdrawal to pain in the lower extremities. Results & Data ([facility]) Vital Signs (Past 12 Hours) Vital Signs Temp Pulse Resp BP Pulse Ox 01/12/22 07:02 36.5 C 60 18 133/80 95 01/12/22 01:54 26 H 01/11/22 22:18 37.1 C 109 H 24 150/79 H 94 PG Care Time/CCT Total # of Minutes Spent Total Time Spent with Patient: Total time spent is greater than 50% in coordination of care (as documented) at patient's floor/unit and/or counseling patient: Coding Level of Care Code 41616 Initial Inpt Care Lvl 3 Diagnoses Dementia F03.90 Dementia behavioral disturbance: without behavioral disturbance Dementia type: unspecified type Seizure-like activity R56.9 Time Spent (min) 60 (1) Dementia Dementia behavioral disturbance: without behavioral disturbance Dementia type: unspecified type Qualified Code(s): F03.90 - Unspecified dementia without behavioral disturbance
--- NOTE | 2022-01-12 13:21 | Electroencephalogram ---
EEG Procedure Note Date of Service January 12, 2022 Start / End Times Start Time: 1126 End Time: [address] Palma History 71-year-old with history of advanced Alzheimer's disease and seizure activity Home Medication List Medication Instructions Recorded Confirmed Type atorvastatin 10 mg tablet 10 mg PO QAM 09/30/21 01/10/22 History dicyclomine 10 mg capsule 10 mg PO TID 09/30/21 01/10/22 History ibuprofen 200 mg capsule 200 mg PO UD PRN 09/30/21 01/10/22 History donepezil 10 mg tablet 10 mg PO DAILY 12/04/21 01/10/22 History pantoprazole 20 mg tablet,delayed 20 ea PO DAILY 12/04/21 01/10/22 History release ciclopirox 8 units 01/10/22 History ciclopirox 8 % topical solution 1 applic TOPICAL DAILY 01/10/22 01/10/22 History loperamide 2 mg tablet 2 mg PO DAILY 01/10/22 01/10/22 History mirtazapine 15 mg tablet 15 mg PO DAILY 01/10/22 01/10/22 History Inpatient Medication List Aspirin (Aspirin 81 Mg Ectab) [facility] Stop: 02/10/22 08:59 Last Admin: 01/12/22 09:18 Dose: Not Given Documented by: [id number] Admin: 01/11/22 07:33 Dose: 81 mg Documented by: [id number] Atorvastatin Calcium (Atorvastatin 10 Mg Tab) 10 mg PO QAM [facility] Stop: 02/10/22 08:59 Last Admin: 01/12/22 09:18 Dose: Not Given Documented by: [id number] Admin: 01/11/22 07:34 Dose: 10 mg Documented by: [id number] Dicyclomine HCl (Dicyclomine Hcl 10 Mg Cap) 10 mg PO TID [facility] Stop: 02/09/22 14:59 Last Admin: 01/12/22 13:15 Dose: Not Given Documented by: [id number] Admin: 01/12/22 09:18 Dose: Not Given Documented by: [id number] Admin: 01/11/22 20:18 Dose: 10 mg Documented by: [id number] Admin: 01/11/22 13:43 Dose: 10 mg Documented by: [id number] Admin: 01/11/22 07:33 Dose: 10 mg Documented by: [id number] Admin: 01/10/22 19:28 Dose: 10 mg Documented by: [id number] Admin: 01/10/22 16:52 Dose: 10 mg Documented by: [id number] Donepezil HCl (Donepezil Hcl 10 Mg Tab) 10 mg PO DAILY [facility] Stop: 02/10/22 08:59 Last Admin: 01/12/22 09:18 Dose: Not Given Documented by: [id number] Admin: 01/11/22 07:33 Dose: 10 mg Documented by: [id number] Heparin Sodium (Porcine) (Heparin Sod 5,000 Unit/0.5 Ml Vial) 5,000 units SQ Q12 [facility] Stop: 02/09/22 20:59 Last Admin: 01/12/22 10:02 Dose: 5,000 units Documented by: [id number] Admin: 01/11/22 20:07 Dose: 5,000 units Documented by: [id number] Admin: 01/11/22 07:34 Dose: 5,000 units Documented by: [id number] Admin: 01/10/22 20:21 Dose: 5,000 units Documented by: [id number] Levetiracetam 500 mg/ Sodium (Chloride) 105 mls @ 420 mls/hr IV Q12H [facility] Stop: 02/10/22 20:59 Last Infusion: 01/12/22 10:04 Dose: 0 mls/hr Documented by: [id number] Admin: 01/12/22 09:40 Dose: 420 mls/hr Documented by: [id number] Infusion: 01/11/22 21:55 Dose: 0 mls/hr Documented by: [id number] Admin: 01/11/22 21:40 Dose: 420 mls/hr Documented by: [id number] Sodium Chloride (Nss 1000ml) 1,000 mls @ 100 mls/hr IV .Q10H [facility] Stop: 01/12/22 15:49 Last Admin: 01/12/22 08:53 Dose: 100 mls/hr Documented by: [id number] Infusion: 01/12/22 06:50 Dose: 100 mls/hr Documented by: [id number] Infusion: 01/12/22 03:48 Dose: 100 mls/hr Documented by: [id number] Infusion: 01/12/22 01:59 Dose: 0 mls/hr Documented by: [id number] Admin: 01/11/22 19:00 Dose: 100 mls/hr Documented by: [id number] Piperacillin Sod/Tazobactam (Sod 3.375 gm/ Dextrose) 115 mls @ 28.75 mls/hr IV Q8H [facility]; Protocol Stop: 01/13/22 23:59 Last Infusion: 01/12/22 12:49 Dose: 0 mls/hr Documented by: [id number] Infusion: 01/12/22 10:04 Dose: 28.8 mls/hr Documented by: [id number] Infusion: 01/12/22 09:43 Dose: 0 mls/hr Documented by: [id number] Admin: 01/12/22 08:50 Dose: 28.8 mls/hr Documented by: [id number] Infusion: 01/12/22 03:48 Dose: 0 mls/hr Documented by: [id number] Admin: 01/11/22 23:52 Dose: 28.8 mls/hr Documented by: [id number] Lactobacillus Acidophilus (Advanced Probiotic 1250 Mg Capsule) 2 cap PO DAILY [facility] Stop: 02/10/22 08:59 Last Admin: 01/12/22 09:18 Dose: Not Given Documented by: [id number] Admin: 01/11/22 07:34 Dose: 2 cap Documented by: [id number] Melatonin (Melatonin 3 Mg Tab) 6 mg PO HS [facility] Stop: 02/10/22 20:59 Last Admin: 01/11/22 20:06 Dose: 6 mg Documented by: [id number] Mirtazapine (Mirtazapine Tab 15 Mg Tab) 15 mg PO DAILY [facility] Stop: 02/09/22 14:59 Last Admin: 01/12/22 09:18 Dose: Not Given Documented by: [id number] Admin: 01/11/22 07:33 Dose: 15 mg Documented by: [id number] Admin: 01/10/22 16:52 Dose: 15 mg Documented by: [id number] Miscellaneous (Ciclopirox 8%: Order Awaiting Action) 1 ea N/A QS [facility] Stop: 02/09/22 15:59 Last Admin: 01/12/22 09:19 Dose: Not Given Documented by: [id number] Admin: 01/11/22 23:53 Dose: Not Given Documented by: [id number] Admin: 01/11/22 16:22 Dose: Not Given Documented by: [id number] Admin: 01/11/22 07:34 Dose: Not Given Documented by: [id number] Admin: 01/11/22 00:10 Dose: Not Given Documented by: [id number] Admin: 01/10/22 17:26 Dose: Not Given Documented by: [id number] Olanzapine (Olanzapine 10 Mg/2.1 Ml Sdv) 2.5 mg IM Q8H PRN PRN Reason: Anxiety/Agitation Stop: 02/10/22 17:59 Last Admin: 01/11/22 20:17 Dose: 2.5 mg Documented by: [id number] Pantoprazole Sodium (Pantoprazole 40 Mg Tab) 40 mg PO DAILY [facility] Stop: 02/10/22 08:59 Last Admin: 01/12/22 09:18 Dose: Not Given Documented by: [id number] Admin: 01/11/22 07:33 Dose: 40 mg Documented by: [id number] Discontinued Medications Aspirin (Aspirin 81 Mg Chew) 324 mg PO NOW STA Stop: 01/10/22 11:08 Last Admin: 01/10/22 11:17 Dose: 324 mg Documented by: [id number] Sodium Chloride (Nss 1000ml) 1,000 mls @ 999 mls/hr IV .Q1H1M ONE Stop: 01/10/22 11:37 Last Infusion: 01/10/22 11:53 Dose: 0 mls/hr Documented by: [id number] Admin: 01/10/22 10:51 Dose: 999 mls/hr Documented by: [id number] Sodium Chloride (Nss 1000ml) 1,000 mls @ 125 mls/hr IV .Q8H [facility] Stop: 01/11/22 14:59 Last Infusion: 01/11/22 02:23 Dose: 0 mls/hr Documented by: [id number] Admin: 01/11/22 02:21 Dose: Not Given Documented by: [id number] Infusion: 01/10/22 22:06 Dose: 125 mls/hr Documented by: [id number] Infusion: 01/10/22 18:07 Dose: 0 mls/hr Documented by: [id number] Admin: 01/10/22 16:55 Dose: 125 mls/hr Documented by: [id number] Sodium Chloride (Nss 1000ml) 1,000 mls @ 50 mls/hr IV .Q20H ONE Stop: 01/11/22 22:01 Last Infusion: 01/11/22 14:20 Dose: 0 mls/hr Documented by: [id number] Admin: 01/11/22 02:22 Dose: 50 mls/hr Documented by: [id number] Levetiracetam 1,500 mg/ Sodium (Chloride) 115 mls @ 440 mls/hr IV NOW STA Stop: 01/11/22 15:07 Last Infusion: 01/11/22 16:22 Dose: 0 mls/hr Documented by: [id number] Admin: 01/11/22 15:02 Dose: 440 mls/hr Documented by: [id number] Piperacillin Sod/Tazobactam (Sod 3.375 gm/ Dextrose) 115 mls @ 230 mls/hr IV NOW ONE; Protocol Stop: 01/11/22 19:29 Last Infusion: 01/11/22 19:32 Dose: 0 mls/hr Documented by: [id number] Admin: 01/11/22 19:00 Dose: 230 mls/hr Documented by: [id number] Methylprednisolone 20 mg/ (Syringe) 0.32 mls @ 1.5 mls/min IV NOW STA Stop: 01/12/22 01:28 Last Admin: 01/12/22 01:58 Dose: 1.5 mls/min Documented by: [id number] Magnesium Sulfate/Dextrose (Magnesium Sulfate / D5w) 1 gm in 100 mls @ 50 mls/hr IV ONE ONE Stop: 01/12/22 07:14 Last Infusion: 01/12/22 07:50 Dose: 0 mls/hr Documented by: [id number] Admin: 01/12/22 05:38 Dose: 50 mls/hr Documented by: [id number] Ipratropium Bazine (Ipratropium Bazine Neb Soln 0.02% 2.5 Ml Vial) 0.5 mg INH NOW STA Stop: 01/12/22 01:26 Last Admin: 01/12/22 01:54 Dose: 0.5 mg Documented by: [id number] Levalbuterol HCl (Levalbuterol 1.25mg/0.5ml Neb) 1.25 mg INH NOW STA Stop: 01/12/22 01:27 Last Admin: 01/12/22 01:54 Dose: 1.25 mg Documented by: [id number] Olanzapine (Olanzapine 10 Mg/2.1 Ml Sdv) 2.5 mg IM NOW STA Stop: 01/10/22 17:56 Last Admin: 01/10/22 18:22 Dose: 2.5 mg Documented by: [id number] Olanzapine (Olanzapine 2.5 Mg Tab) 2.5 mg PO NOW STA Stop: 01/11/22 02:33 Last Admin: 01/11/22 02:50 Dose: 2.5 mg Documented by: [id number] Olanzapine (Olanzapine 10 Mg/2.1 Ml Sdv) 2.5 mg IM Q4H PRN PRN Reason: Anxiety/Agitation Stop: 02/10/22 03:46 Last Admin: 01/11/22 11:46 Dose: 2.5 mg Documented by: [id number] Admin: 01/11/22 07:24 Dose: 2.5 mg Documented by: [id number] Potassium Chloride (Potassium Chloride Crtab 20 Meq Tabcr) 40 meq PO NOW STA Stop: 01/11/22 09:29 Last Admin: 01/11/22 10:41 Dose: 40 meq Documented by: [id number] Description This is a 21 electrode EEG with a single channel dedicated to limited EKG. The electrodes were placed in accordance with the International 10-20 system. Interpretation The predominant background activity consists of and irregular 4-5 Hz activity, of up to 50 mV in amplitude,seen symmetrically distributed throughout all head regions bilaterally. This activity has little to no attenuation with alerting procedures. Photic stimulation was performed and elicited no change in the background activity and no abnormal responses were seen. Hyperventilation was not performed. A minimal amount of muscle and movement artifact activity contaminated the recording and did not hinder interpretation to any significant degree. Throughout the recording, no focal abnormalities or potentially epileptogenic discharges were seen. In summary, this EEG was abnormal and showed moderately severe generalized slowing of the background activity. Clinical Correlation The abscence of potentially epileptogenic activity does not exclude a seizure disorder, since interictally, EEGs can be normal. The generalized slowing of the background activity is consistent with an encephalopathy, which could be due to wide variety of causes (clinical correlation is). [facility] EEG Procedure Codes Indication for Procedure (1) Seizure-like activity: (2) Dementia: Neurology Neurology: [id number] EEG include record awake & drowsy
--- NOTE | 2022-01-12 15:18 | Electrocardiogram Report ---
Test Reason : Blood Pressure : / mmHG Vent. Rate : 061 BPM Atrial Rate : 061 BPM P-R Int : 160 ms QRS Dur : 086 ms QT Int : 500 ms P-R-T Axes : 041 028 048 degrees QTc Int : 503 ms Normal sinus rhythm Prolonged QT Abnormal ECG When compared with ECG of 10-JAN-2022 09:29, Premature ventricular complexes are no longer Present Confirmed by Ravi García ([id number]) on 01/12/2022 3:18:31 PM Referred By: REFERRED SELF Confirmed By:Ravi García
--- NOTE | 2022-01-12 17:16 | Hospitalist Progress Note ---
Date of Service January 12, 2022 Assessment & Plan (1) Seizure-like activity: (2) Dementia: Plan: 71-year-old male with past medical history significant of hypercholesterolemia, hypertension, history of CVA, history of GERD, history of mood disorder, history of dementia without behavioral disturbance, comes 01/11 to our ED with confusion. He is being managed for the following: #. Confusion #. Worsening dementia Presented to the ED 01/10 by EMS after being noted and found by neighbors that he was lying in their wood pile. Patient had recent neuropsychological test from 09/17/[address] at [facility] [address] Fonseca. It looks like he has at least major neurocognitive disorder, unspecified, of moderate severity; particularly affecting his executive function/motor control/memory and alternative attention impulsivity and conceptualization. It looks like the patient's medication citalopram was changed to mirtazapine, and he was also on donepezil and Namenda was added.The patient lives alone. Sister checks on him. Sister says after starting Namenda he got more hallucinations. 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 Pt is noted to have some ambulatory dysfunction lately,also seems lately requiring more assistance with feeding and dressing. Admitting CT head no acute finding. Admitting urinalysis WNL. MRI brain to rule out TIA. Will be difficult to get one. Neurology consult, appreciate recs. Per RN, pt agitated overnight x1, needed zyprexa, soft mittens off for now, c/w q15 check. Social Service to help with discharge planning. The patient may need more help at home versus retirement placement. Monitor for delirium #. Seizure like activity #. RLL Pna: likely aspiration, on CXR 01/12, 01/11 zosyn, continue ATB, speech eval noted. Pt noted to have spastic/involuntary movement of upper extremities and then followed by lower extremities for 5-10 seconds at a time during the day 01/11 01/11 Discussed with Pt's sister Aurea [phone] , no h/o seizure, no alcohol consumption. No alcohol/beer bottles found at home. Neurology evaluated, DC Zach, start Depakote 250 mg iv q6 hours. f/u EEG. #. Elevated troponin Troponin elevated at presentation, EKG at admission with no acute ST-T changes, no chest pain. 01/11 echo: Ejection fraction 50 to 55%, normal left ventricular wall motion. Normal right ventricular systolic function. Will continue to monitor, likely 2/2 acute stress vs muscular stress (CPK nearing rhabdo level) Repeat EKG w/ no acute ST-T changes. Curbside d/w cardio 01/12, no further recs. #. Other chronic medical conditions: HLD, mood disorder, GERD, HTN, history of cerebrovascular accident, elevated troponin Continue with/resume home meds as and when appropriate. Prolonged QTC 523, avoid QT prolonging drugs. Follow-up EKG as needed. DC Mirtazapine per Neuro 01/12/22. c/w IVF, try to start diet when patient more awake, perform bedside swallow screen prior. #. DVT prophylaxis: Heparin subcu Admission and Anticipated Discharge Date Admission Date: January 10, 2022 Subjective Patient seen and examined at bedside as a follow-up of worsening dementia/confusion and likely seizure-like activity. Patient was lying in bed, on room air, sleeping, difficult to awake, ROS n/a d/t sleeping and congnition status. Per RN, an episode of agitation overnight requiring zyprexa. Has been sleeping in AM, no agitation in AM. Restraints out and sitter changed to q15 checks. Physical Exam Physical Exam: GENERAL: Sleepy, difficult to awake, NAD, on RA. HEENT: No pallor, no icterus. Pupils equal, round and reactive to light. Oral mucosa moist. NECK: No JVD, no neck masses. HEART: S1 and S2 heard. Regular rate and rhythm. No murmur, no gallop. RESPIRATORY SYSTEM: Normal AP diameter. No accessory muscle use. No wheezing, no crackles. ABDOMEN: Soft, bowel sounds present, nontender, no distention. CENTRAL NERVOUS SYSTEM: No facial droop. rest n/a. EXTREMITIES: No edema, no erythema seen. bruises noted BLE and BUE. Results & Data Results & Data ([facility]) Vital Signs (Past 12 Hours) Vital Signs Temp Pulse Resp BP Pulse Ox 01/12/22 15:27 36.8 C 62 16 118/74 96 01/12/22 07:02 36.5 C 60 18 133/80 95 (1) Dementia Dementia behavioral disturbance: without behavioral disturbance Dementia type: unspecified type Qualified Code(s): F03.90 - Unspecified dementia without behavioral disturbance
[2022-01-12] MEDS: D5W AND NSS 1,000 ML IV SCH (17:45)
[2022-01-12] MEDS: MELATONIN 3 MG TAB PO SCH (19:22)
[2022-01-12] MEDS: VALPROATE SOD 250 MG in DEXTROSE 5% 50 ML IV SCH (20:22)
[2022-01-12] MEDS ORDERED: OLANZAPINE 2.5 MG TAB PO STA (22:45)
[2022-01-13] MEDS ORDERED: GADOBUTROL 65ML VIAL IV ONE (00:51)
[2022-01-13] MEDS: VALPROATE SOD 250 MG in DEXTROSE 5% 50 ML IV SCH ×4 (03:42→20:04)
[2022-01-13] MEDS: D5W AND NSS 1,000 ML IV SCH (07:40)
--- NOTE | 2022-01-13 07:47 | Magnetic Resonance Report ---
Brain MRI WITH AND WITHOUT CONTRAST HISTORY: confusion TECHNIQUE: Multiplanar multisequence MRI of the brain was performed both before and after the intrave nous administration of contrast. COMPARISON STUDY: Head CT 01/10/2022. FINDINGS: There is no mass, hematoma, midline shift, or acute infarct. The paranasal sinuses are henri r. The mastoid air cells are clear. The ventricles and sulci demonstrate mild age-related involutiona l changes. Scattered foci of T2 hyperintensity seen within the periventricular and subcortical white matter are nonspecific but suggestive of mild microvascular ischemic changes. The major vascular flow voids at the skull base are well-maintained. IMPRESSION: No acute intracranial abnormality. Scattered foci of T2 hyperintensity seen within the periventricula r and subcortical white matter are nonspecific but favor microvascular ischemic change. ACT 112: Negative or not required by law. Electronically signed by: Brent Jackson M.D. 01/13/2022 7:45 AM
[2022-01-13 07:59] LABS: BUN Creatinine Ratio 23.5 (10-20); Calcium 8.5 mg/dl (8.5-10.1); Creatinine Clr Calc Pharmacy 89.2 ml/min; Est GFR (African American) 110.6 ml/min; Est GFR (Non-African American) 95.4 ml/min; Magnesium 2.2 mg/dl (1.7-2.4); Potassium 4.3 mmol/L (3.5-5.1)
[2022-01-13] MEDS: PANTOprazole 40 MG TAB PO SCH (08:55)
[2022-01-13] MEDS: ATORVASTATIN 10 MG TAB PO SCH (08:55)
[2022-01-13] MEDS: ASPIRIN 81 MG ECTAB PO SCH (08:55)
[2022-01-13] MEDS: DICYCLOMINE HCL 10 MG CAP PO SCH ×3 (08:55→20:04)
[2022-01-13] MEDS: DONEPEZIL HCL 10 MG TAB PO SCH (08:55)
[2022-01-13] MEDS: HEPARIN SOD 5,000 UNIT/0.5 ML VIAL SQ SCH ×2 (08:56→20:04)
[2022-01-13] MEDS: ADVANCED PROBIOTIC 1250 MG CAPSULE PO SCH (08:56)
[2022-01-13] MEDS: PIPERACILLIN/TAZOBACTAM 3.375 GM in DEXTROSE 5% 100 ML IV SCH ×2 (08:57→15:36)
--- NOTE | 2022-01-13 09:25 | Neurology Progress Note ---
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 MRI of the brain showed no specific focal atrophy in the frontal or temporal head regions. Patient has a right lower lobe pneumonia and, starting January 11, developed abnormal movements that may represent seizures, but were more consistent with myoclonic jerking. Today his neurologic examination was markedly improved. He has no myoclonic jerks or abnormal involuntary movements today and he is alert and talking. It is clear that he has a significant dementia however. He has no focal neurologic findings. Recommendations: 1. Keep off mirtazapine -this medication can cause increased confusion , drowsiness, and seizures (including myoclonus) 2. Avoid MEAT SCRUBBER acting medications, as much as possible, including neuroleptics such as olanzapine 3. Keep off levetiracetam. This will not cover myoclonic jerks as well as Depakote and may lead to irritability 4. Continue Depakote 250 milligrams IV q.6 hours, for now. We can switch to Depakote ER 500 milligrams p.o. twice daily when he is taking p.o. well. 5. Check a trough Depakote level tomorrow morning. 6. I will follow. Overall, I spent a total of 35 minutes with this case including review of records, direct evaluation the patient bedside, and discussion of the case with the RN at bedside, the patient, and Dr. Palma, including differential diagnosis and treatment options. Admission and Anticipated Discharge Date Admission Date: January 10, 2022 Subjective Patient is markedly improved with his mental status today compared to yesterday. He is awake, makes eye contact, follows directions, and will converse. He denies pain, headache, vision problems, dizziness, weakness, or numbness. Nursing reports no seizure-like activity or jerking since we switched him from levetiracetam to valproic acid. He has not received any Zyprexa in the last 12- 24 hours either. EEG showed significant generalized slowing without focal abnormalities or potentially epileptogenic discharges. MRI of the brain showed mild generalized atrophy with mild increase in old small vessel ischemic disease of the white matter. There was no frontotemporal atrophy that was out of proportion to the rest of his brain. I reviewed these films. Results & Data ([facility]) Vital Signs (Past 12 Hours) Vital Signs Temp Pulse Resp BP Pulse Ox 01/13/22 07:22 36.4 C L 66 18 134/81 97 01/12/22 22:43 36.9 C 70 16 144/93 H 95 Exam (Neuro) Physical Exam: He is awake and alert. Speech can get somewhat rapid and mumble at times, making interpretation difficult, but other times he is more clear and understandable. He does not have an overt dysarthria however. The patient is relatively calm and can follow 1 step commands fairly well. Two step commands can leave him somewhat confused but he will imitate. Extraocular eye muscles are intact without nystagmus. There is no facial droop. Coordination was normal in the arms without tremor or ataxia. I saw no myoclonic jerks or abnormal involuntary movements today. Limbs had reasonable tone and strength was essentially 5/5 in all major muscle groups in arms and legs both proximally distally. Toes were neutral to downgoing with plantar stimulation bilaterally. PG Care Time/CCT Total # of Minutes Spent Total Time Spent with Patient: Total time spent is greater than 50% in coordination of care (as documented) at patient's floor/unit and/or counseling patient: Coding Level of Care Code 06879 Subseq Hosp Care Lvl 3 Diagnoses Seizure-like activity R56.9 Dementia F03.90 Myoclonic jerking G25.3
[2022-01-13 09:42] LABS: Hemoglobin 14.5 g/dL (14.0-18.0); Mean Corpuscular Volume 98.6 fL (80-100); Mean Platelet Volume 10.2 fL (7.4-10.4); Platelet Count 219 K/uL (130-400); RDW Coefficient of Variation 12.6 % (11.5-14.5); RDW Standard Deviation 45.1 fL (36.4-46.3); Red Blood Count 4.26 M/uL (4.7-6.1); White Blood Count 6.67 K/uL (4.8-10.8)
[2022-01-13 09:50] LABS: Mean Corpuscular Hgb Conc 34.5 g/dL (32-36)
--- NOTE | 2022-01-13 18:08 | Hospitalist Progress Note ---
Date of Service January 13, 2022 Assessment & Plan (1) Seizure-like activity: (2) Dementia: Plan: 71-year-old male with past medical history significant of hypercholesterolemia, hypertension, history of CVA, history of GERD, history of mood disorder, history of dementia without behavioral disturbance, comes 01/11 to our ED with confusion. He is being managed for the following: #. Confusion #. Worsening dementia Presented to the ED 01/10 by EMS after being noted and found by neighbors that he was lying in their wood pile. Patient had recent neuropsychological test from 09/17/2021 at [facility] by Dr. Fonseca. It looks like he has at least major neurocognitive disorder, unspecified, of moderate severity; particularly affecting his executive function/motor control/memory and alternative attention impulsivity and conceptualization. It looks like the patient's medication citalopram was changed to mirtazapine, and he was also on donepezil and Namenda was added.The patient lives alone. Sister checks on him. Sister says after starting Namenda he got more hallucinations. 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 Pt is noted to have some ambulatory dysfunction lately,also seems lately requiring more assistance with feeding and dressing. Admitting CT head no acute finding. Admitting urinalysis WNL. MRI brain to rule out TIA. Will be difficult to get one. Neurology consult, appreciate recs. Per RN, no issues overnight. Pt appears to be improving clinically. Social Service to help with discharge planning. The patient may need more help at home versus custodial placement. Monitor for delirium #. Seizure like activity #. RLL Pna: likely aspiration, on CXR 01/12, 01/11 zosyn, continue ATB, speech eval noted. Pt noted to have spastic/involuntary movement of upper extremities and then followed by lower extremities for 5-10 seconds at a time during the day 01/11 01/11 Discussed with Pt's sister Aurea [phone] , no h/o seizure, no alcohol consumption. No alcohol/beer bottles found at home. Neurology evaluated, SANDY Serrano, start Depakote 250 mg iv q6 hours. f/u EEG. Depakote level in AM. #. Elevated troponin Troponin elevated at presentation, EKG at admission with no acute ST-T changes, no chest pain. 01/11 echo: Ejection fraction 50 to 55%, normal left ventricular wall motion. Normal right ventricular systolic function. Will continue to monitor, likely 2/2 acute stress vs muscular stress (CPK nearing rhabdo level) Repeat EKG w/ no acute ST-T changes. Curbside d/w cardio 01/12, no further recs. #. Other chronic medical conditions: HLD, mood disorder, GERD, HTN, history of cerebrovascular accident, elevated troponin Continue with/resume home meds as and when appropriate. Prolonged QTC 523, avoid QT prolonging drugs. Follow-up EKG as needed. DC Mirtazapine per Neuro 01/12/22. Speech evaluated, appreciate recs #. DVT prophylaxis: Heparin subcu Admission and Anticipated Discharge Date Admission Date: January 10, 2022 Subjective Patient seen and examined at bedside as a follow-up of worsening dementia/confusion and likely seizure-like activity. Patient was lying in bed, on room air, sleeping, awake easily, AOx1, ROS n/a d/t congnition status but denies discomfort or pain. Per RN, no agitation overnnight, some in AM. no issues overnight. Physical Exam Physical Exam: GENERAL: AOx1, NAD, on RA. HEENT: No pallor, no icterus. Pupils equal, round and reactive to light. Oral mucosa moist. NECK: No JVD, no neck masses. HEART: S1 and S2 heard. Regular rate and rhythm. No murmur, no gallop. RESPIRATORY SYSTEM: Normal AP diameter. No accessory muscle use. No wheezing, no crackles. ABDOMEN: Soft, bowel sounds present, nontender, no distention. CENTRAL NERVOUS SYSTEM: No facial droop. rest n/a. EXTREMITIES: No edema, no erythema seen. bruises noted BLE and BUE. Results & Data Results & Data ([facility]) Vital Signs (Past 12 Hours) Vital Signs Temp Pulse Resp BP Pulse Ox 01/13/22 15:12 36.7 C 64 17 151/79 H 97 01/13/22 07:22 36.4 C L 66 18 134/81 97 (1) Dementia Dementia behavioral disturbance: without behavioral disturbance Dementia type: unspecified type Qualified Code(s): F03.90 - Unspecified dementia without behavioral disturbance
[2022-01-13] MEDS: MELATONIN 3 MG TAB PO SCH (20:04)
[2022-01-13] MEDS: AMPICILLIN/SULBACTAM SOD 3,000 MG in 0.9 % SODIUM CHLORIDE 100 ML IV SCH (23:54)
[2022-01-14] MEDS: VALPROATE SOD 250 MG in DEXTROSE 5% 50 ML IV SCH ×4 (02:10→20:23)
[2022-01-14] MEDS: OLANZapine 10 MG/2.1 ML SDV IM PRN ×2 (02:10→19:17)
[2022-01-14] MEDS: AMPICILLIN/SULBACTAM SOD 3,000 MG in 0.9 % SODIUM CHLORIDE 100 ML IV SCH ×4 (05:57→23:51)
--- NOTE | 2022-01-14 06:40 | CT Scan Report ---
CT OF THE HEAD WITHOUT CONTRAST CLINICAL HISTORY: head trauma COMPARISON STUDY: Head CT January 10, 2022. MRI of the brain January 13, 2022. TECHNIQUE: Helical axial images of the head were obtained without IV contrast. Automated exposure con trol was utilized for the study. A dose lowering technique was utilized adhering to the principles o f ALARA. FINDINGS: No acute intracranial hemorrhage, midline shift or mass effect is present. White matter hyp odensity suggests small vessel disease. The ventricular system is unremarkable. The basal cisterns ar e patent. No extra-axial collections are present. There are no findings to suggest acute dural sinus thrombosis or acute territorial infarct. No significant calvarial abnormalities are present. Visualiz ed portions of the sinuses and mastoid air cells are clear. Right infraorbital contusion is present. IMPRESSION: 1. No acute intracranial findings. 2. Right infraorbital contusion. 3. No acute calvarial fracture. ACT 112: Negative or not required by law. Electronically signed by: Yosef Miller M.D. 01/14/2022 6:39 AM
--- NOTE | 2022-01-14 06:45 | CT Scan Report ---
CT OF THE CERVICAL SPINE WITHOUT CONTRAST CLINICAL HISTORY: Fall. COMPARISON STUDY: No previous studies for comparison. TECHNIQUE: Helical axial images of the cervical spine were obtained without IV contrast. Sagittal a nd coronal reconstructions were viewed. Automated exposure control was utilized for the study. A do se lowering technique was utilized adhering to the principles of ALARA. FINDINGS: Alignment of the cervical spine is anatomic. Vertebral body heights are maintained. No acut e cervical spine fracture or subluxation is present. There is no prevertebral edema. Facet joints are intact. Severe multilevel facet arthrosis and moderate to severe multilevel degenerative disc disea se is present. Multilevel degenerative disc disease Mild emphysema is noted within the lung apices. IMPRESSION: 1. No acute cervical spine fracture or subluxation. 2. Moderate to severe multilevel degenerative changes within the cervical spine. ACT 112: Negative or not required by law. Electronically signed by: Yosef Miller M.D. 01/14/2022 6:44 AM
[2022-01-14 07:32] LABS: Hematocrit (blood only) 42.7 % (42-52); Hemoglobin 14.9 g/dL (14.0-18.0); Mean Corpuscular Hemoglobin 34.1 pg (25-34); Mean Corpuscular Hgb Conc 34.9 g/dL (32-36); Mean Corpuscular Volume 97.7 fL (80-100); Mean Platelet Volume 10.4 fL (7.4-10.4); Platelet Count 229 K/uL (130-400); RDW Coefficient of Variation 12.4 % (11.5-14.5); RDW Standard Deviation 44.1 fL (36.4-46.3); Red Blood Count 4.37 M/uL (4.7-6.1); White Blood Count 5.79 K/uL (4.8-10.8)
[2022-01-14] MEDS: ADVANCED PROBIOTIC 1250 MG CAPSULE PO SCH (07:51)
[2022-01-14] MEDS: ASPIRIN 81 MG ECTAB PO SCH (07:51)
[2022-01-14] MEDS: PANTOprazole 40 MG TAB PO SCH (07:51)
[2022-01-14] MEDS: DONEPEZIL HCL 10 MG TAB PO SCH (07:51)
[2022-01-14] MEDS: HEPARIN SOD 5,000 UNIT/0.5 ML VIAL SQ SCH ×2 (07:52→20:24)
[2022-01-14] MEDS: ATORVASTATIN 10 MG TAB PO SCH (07:52)
[2022-01-14] MEDS: DICYCLOMINE HCL 10 MG CAP PO SCH ×4 (07:52→21:42)
[2022-01-14 07:56] LABS: BUN Creatinine Ratio 19.7 (10-20); Calcium 8.9 mg/dl (8.5-10.1); Creatinine Clr Calc Pharmacy 99.4 ml/min; Est GFR (African American) 115.6 ml/min; Est GFR (Non-African American) 99.8 ml/min; Potassium 3.3 mmol/L (3.5-5.1)
--- NOTE | 2022-01-14 09:38 | Neurology Progress Note ---
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 MRI of the brain showed no specific focal atrophy in the frontal or temporal head regions. Patient has a right lower lobe pneumonia and, starting January 11, developed abnormal movements that may represent seizures, but were more consistent with myoclonic jerking. Depakote level is low normal. His neurologic examination has been significantly improved over the last 48 hours. He has no myoclonic jerks or abnormal involuntary movements today and he is alert and talking. He has a significant dementia with no focal neurologic findings. Recommendations: 1. Keep off mirtazapine -this medication can cause increased confusion , drowsiness, and seizures (including myoclonus) 2. Avoid ANESTHETIC ASSISTANT acting medications, as much as possible, including neuroleptics such as olanzapine 3. Keep off levetiracetam. This will not cover myoclonic jerks as well as Depakote and may lead to irritability 4. Switch Depakote to oral ER 500 milligrams twice daily when able to take p.o. well. 5. Apparently he is trying to get out of bed and has fallen. Hopefully he can be transferred to senior care soon. 6. I have no further neurologic testing or treatment recommendations to make at this time. Patient can follow up with Dr. Chance as an outpatient. Overall, I spent a total of 35 minutes with this case including review of records, direct evaluation the patient bedside, and discussion of the case with the RN at bedside, the patient, and Dr. Palma, including differential diagnosis and treatment options. Admission and Anticipated Discharge Date Admission Date: January 10, 2022 Subjective the patient has no complaint of pain or headache. He is not dizzy. Nursing reports no new events however the patient is trying to get up out of bed and actually fell last night. He is now back to a "1 on 1". There trying to get him to a senior care ( which has accepted him for later this week ). Blood pressure is 175/94 this morning with a pulse of 72 and he is afebrile. Laboratory studies reveals stable CBC and Chem profile except for potassium was slightly low at 3.3. Depakote level this morning was 49 ( Normal 50-100). Results & Data ([facility]) Vital Signs (Past 12 Hours) Vital Signs Temp Pulse Resp BP Pulse Ox 01/14/22 07:22 36.6 C 72 175/94 H 97 01/13/22 22:45 84 18 162/83 H 99 Exam (Neuro) Physical Exam: He is awake and alert. Speech is mumbled and occasionally is hard to understand what he is saying although his words are intelligible when he slows down. Extraocular eye muscles are intact without nystagmus. There is no facial droop. Coordination seems reasonable in the arms and strength is symmetrical in the limbs. PG Care Time/CCT Total # of Minutes Spent Total Time Spent with Patient: Total time spent is greater than 50% in coordination of care (as documented) at patient's floor/unit and/or counseling patient: Coding Level of Care Code 71236 Subseq Hosp Care Lvl 3 Diagnoses Seizure-like activity R56.9 Dementia F03.90 Myoclonic jerking G25.3
[2022-01-14] MEDS ORDERED: POTASSIUM CHLORIDE CRTAB 20 MEQ TABCR PO STA (12:35)
--- NOTE | 2022-01-14 17:35 | Hospitalist Progress Note ---
Date of Service January 14, 2022 Assessment & Plan (1) Seizure-like activity: (2) Dementia: Plan: 71-year-old male with past medical history significant of hypercholesterolemia, hypertension, history of CVA, history of GERD, history of mood disorder, history of dementia without behavioral disturbance, comes 01/11 to our ED with confusion. He is being managed for the following: Confusion Worsening dementia Presented to the ED 01/10 by EMS after being noted and found by neighbors that he was lying in their wood pile. Patient had recent neuropsychological test from 09/17/2021 at [facility] by Dr. Fonseca. It looks like he has at least major neurocognitive disorder, unspecified, of moderate severity; particularly affecting his executive function/motor control/memory and alternative attention impulsivity and conceptualization. It looks like the patient's medication citalopram was changed to mirtazapine, and he was also on donepezil and Namenda was added.The patient lives alone. Sister checks on him. Sister says after starting Namenda he got more hallucinations. 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 Pt is noted to have some ambulatory dysfunction lately,also seems lately requiring more assistance with feeding and dressing. Awaiting placement Admitting CT head no acute finding. Admitting urinalysis WNL. MRI brain to rule out TIA. Will be difficult to get one. Neurology consult, appreciate recs. Social Service to help with discharge planning. The patient may need more help at home versus correction placement. Monitor for delirium RLL Pna: likely aspiration, on CXR 01/12, 01/11 zosyn, continue ATB, speech eval noted. Appreciate speech evaluation and recommendation-May need more assistance with feeding Seizure like activity Pt noted to have spastic/involuntary movement of upper extremities and then followed by lower extremities for 5-10 seconds at a time during the day 01/11 01/11 Discussed with Pt's sister Aurea [phone] , no h/o seizure, no alcohol consumption. No alcohol/beer bottles found at home. Neurology evaluated, SANDY Serrano, start Depakote 250 mg iv q6 hours. f/u EEG. Depakote level in AM-49 . Elevated troponin Troponin elevated at presentation, EKG at admission with no acute ST-T changes, no chest pain. 01/11 echo: Ejection fraction 50 to 55%, normal left ventricular wall motion. Normal right ventricular systolic function. Will continue to monitor, likely 2/2 acute stress vs muscular stress (CPK nearing rhabdo level) Repeat EKG w/ no acute ST-T changes. Curbside d/w cardio 01/12, no further recs. Other chronic medical conditions: HLD, mood disorder, GERD, HTN, history of cerebrovascular accident, elevated troponin Continue with/resume home meds as and when appropriate. Prolonged QTC 523, avoid QT prolonging drugs. Follow-up EKG as needed. DC Mirtazapine per Neuro 01/12/22. DVT prophylaxis: Heparin subcu Admission and Anticipated Discharge Date Admission Date: January 10, 2022 Subjective 01/14/2022 Patient was seen and examined in medical floor He has significant dementia and denies any symptoms Requiring 2 people to feed him Has been waiting to go to a correction Review of Systems Review of Systems: Unobtainable due to cognitive status Physical Exam Physical Exam: Lying in bed comfortably Constitutional: + ill appearing and average body habitus Eyes: PERRL, conjunctivae normal, anicteric sclerae ENMT: external ear and nose normal, oropharynx normal Neck: trachea midline, no thyromegaly Respiratory: no respiratory distress Auscultation: lungs clear to auscultation bilaterally; no crackles Cardiovascular: Rate/Rhythm: regular rate and regular rhythm; not tachycardic Heart Sounds: normal S1 and normal S2; no murmur Extremities: no edema Gastrointestinal (Abdomen): Inspection/Auscultation: normal bowel sounds; abdomen not distended Percussion/Palpation: abdomen soft; abdomen nontender Musculoskeletal: No acute arthritis in any joint Skin: Has generalized bruising Neurologic: Alert and awake. Has significant dementia with confusion. No acute psychosis Results & Data Results & Data ([facility]) Vital Signs (Past 12 Hours) Vital Signs Temp Pulse BP Pulse Ox 01/14/22 07:22 36.6 C 72 175/94 H 97 Laboratory Results Short CBC 01/14/22 Range/Units 07:06 WBC 5.79 (4.8-10.8) K/uL Hgb 14.9 (14.0-18.0) g/dL Hct 42.7 (42-52) % Plt Count 229 (130-400) K/uL BMP 01/14/22 07:06 Sodium 143 Potassium 3.3 L D Chloride 107 Carbon Dioxide 28 BUN 12 Creatinine 0.61 Glucose 91 Calcium 8.9 Medications Administered Current Inpatient Medications Acetaminophen (Acetaminophen 325 Mg Tab) 650 mg PO Q4H PRN PRN Reason: pain/fever Stop: 02/09/22 14:59 Aspirin (Aspirin 81 Mg Ectab) 81 mg PO QAM AMANDO Stop: 02/10/22 08:59 Last Admin: 01/14/22 07:51 Dose: 81 mg Documented by: Atorvastatin Calcium (Atorvastatin 10 Mg Tab) 10 mg PO QAM AMANDO Stop: 02/10/22 08:59 Last Admin: 01/14/22 07:52 Dose: 10 mg Documented by: Dicyclomine HCl (Dicyclomine Hcl 10 Mg Cap) 10 mg PO TID AMANDO Stop: 02/09/22 14:59 Last Admin: 01/14/22 14:04 Dose: 10 mg Documented by: Donepezil HCl (Donepezil Hcl 10 Mg Tab) 10 mg PO DAILY AMANDO Stop: 02/10/22 08:59 Last Admin: 01/14/22 07:51 Dose: 10 mg Documented by: Heparin Sodium (Porcine) (Heparin Sod 5,000 Unit/0.5 Ml Vial) 5,000 units SQ Q12 AMANDO Stop: 02/09/22 20:59 Last Admin: 01/14/22 07:52 Dose: 5,000 units Documented by: Ampicillin Sodium/Sulbactam Sodium 3,000 mg/ Sodium Chloride 108 mls @ 216 mls/hr IV Q6H AMANDO Stop: 01/18/22 18:31 Last Admin: 01/14/22 17:26 Dose: 216 mls/hr Documented by: Valproic Acid 250 mg/ Dextrose 52.5 mls @ 55 mls/hr IV Q6H AMANDO Stop: 02/11/22 20:29 Last Infusion: 01/14/22 17:05 Dose: Infused Documented by: Lactobacillus Acidophilus (Advanced Probiotic 1250 Mg Capsule) 2 cap PO DAILY AMANDO Stop: 02/10/22 08:59 Last Admin: 01/14/22 07:51 Dose: 2 cap Documented by: Melatonin (Melatonin 3 Mg Tab) 6 mg PO HS AMANDO Stop: 02/10/22 20:59 Last Admin: 01/13/22 20:04 Dose: 6 mg Documented by: Olanzapine (Olanzapine 10 Mg/2.1 Ml Sdv) 2.5 mg IM Q8H PRN PRN Reason: Anxiety/Agitation Stop: 02/10/22 17:59 Last Admin: 01/14/22 02:10 Dose: 2.5 mg Documented by: Pantoprazole Sodium (Pantoprazole 40 Mg Tab) 40 mg PO DAILY AMANDO Stop: 02/10/22 08:59 Last Admin: 01/14/22 07:51 Dose: 40 mg Documented by: (1) Dementia Dementia behavioral disturbance: without behavioral disturbance Dementia type: unspecified type Qualified Code(s): F03.90 - Unspecified dementia without behavioral disturbance
[2022-01-14] MEDS: MELATONIN 3 MG TAB PO SCH ×2 (20:23→21:42)
[2022-01-15] MEDS: VALPROATE SOD 250 MG in DEXTROSE 5% 50 ML IV SCH ×2 (01:53→08:33)
[2022-01-15] MEDS: AMPICILLIN/SULBACTAM SOD 3,000 MG in 0.9 % SODIUM CHLORIDE 100 ML IV SCH (05:59)
[2022-01-15 08:40] LABS: BUN Creatinine Ratio 27.8 (10-20); Calcium 8.5 mg/dl (8.5-10.1); Creatinine Clr Calc Pharmacy 112.3 ml/min; Est GFR (African American) 121.6 ml/min; Est GFR (Non-African American) 104.9 ml/min; Potassium 3.5 mmol/L (3.5-5.1)
[2022-01-15] MEDS: HEPARIN SOD 5,000 UNIT/0.5 ML VIAL SQ SCH ×2 (09:49→20:32)
[2022-01-15] MEDS: DICYCLOMINE HCL 10 MG CAP PO SCH ×3 (11:25→20:33)
[2022-01-15] MEDS: ATORVASTATIN 10 MG TAB PO SCH (11:25)
[2022-01-15] MEDS: ASPIRIN 81 MG ECTAB PO SCH (11:25)
[2022-01-15] MEDS: ADVANCED PROBIOTIC 1250 MG CAPSULE PO SCH (11:26)
[2022-01-15] MEDS: PANTOprazole 40 MG TAB PO SCH (11:26)
[2022-01-15] MEDS: DONEPEZIL HCL 10 MG TAB PO SCH (11:26)
--- NOTE | 2022-01-15 12:54 | CT Scan Report ---
CT OF THE HEAD WITHOUT CONTRAST CLINICAL HISTORY: R/O Bleed.Minimally responsive COMPARISON STUDY: MRI of the brain and head CT January 13, 2022. CT DOSE: 614.27 mGy.cm TECHNIQUE: Helical axial images of the head were obtained without IV contrast. Automated exposure con trol was utilized for the study. A dose lowering technique was utilized adhering to the principles o f ALARA. FINDINGS: No acute intracranial hemorrhage, midline shift or mass effect is present. White matter hyp odensities are unchanged and suggest small vessel disease. The ventricular system is unremarkable. Th e basal cisterns are patent. No extra-axial collections are present. There are no findings to suggest acute dural sinus thrombosis or acute territorial infarct. No significant calvarial abnormalities ar e present. Visualized portions of the sinuses and mastoid air cells are clear. IMPRESSION: No acute intracranial findings. ACT 112: Negative or not required by law. Electronically signed by: Yosef Miller M.D. 01/15/2022 12:51 PM
--- NOTE | 2022-01-15 17:10 | Hospitalist Progress Note ---
Date of Service January 15, 2022 Assessment & Plan (1) Seizure-like activity: (2) Dementia: Plan: 71-year-old male with past medical history significant of hypercholesterolemia, hypertension, history of CVA, history of GERD, history of mood disorder, history of dementia without behavioral disturbance, comes 01/11 to our ED with confusion. He is being managed for the following: Confusion Worsening dementia Presented to the ED 01/10 by EMS after being noted and found by neighbors that he was lying in their wood pile. Patient had recent neuropsychological test from 09/17/2021 at [facility] by Dr. Fonseca. It looks like he has at least major neurocognitive disorder, unspecified, of moderate severity; particularly affecting his executive function/motor control/memory and alternative attention impulsivity and conceptualization. It looks like the patient's medication citalopram was changed to mirtazapine, and he was also on donepezil and Namenda was added.The patient lives alone. Sister checks on him. Sister says after starting Namenda he got more hallucinations. 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 Pt is noted to have some ambulatory dysfunction lately,also seems lately requiring more assistance with feeding and dressing. Awaiting placement Admitting CT head no acute finding. Admitting urinalysis WNL. MRI brain to rule out TIA. Will be difficult to get one. Neurology consult, appreciate recs. Social Service to help with discharge planning. The patient may need more help at home versus fci placement. Monitor for delirium Semiconsciousness Remains in deep sleep since this morning Difficult to arouse and is opening eyes with commands but did not eat or drink Remained hemodynamically stable CAT scan of the head did not show any acute events The patient has not been sleeping for the last few days Will monitor in the hospital POA is aware RLL Pna: likely aspiration, on CXR 01/12, 01/11 zosyn, continue ATB, speech eval noted. Appreciate speech evaluation and recommendation-May need more assistance with feeding Seizure like activity Pt noted to have spastic/involuntary movement of upper extremities and then followed by lower extremities for 5-10 seconds at a time during the day 01/11 01/11 Discussed with Pt's sister Aurea [phone] , no h/o seizure, no alcohol consumption. No alcohol/beer bottles found at home. Neurology evaluated, SANDY Serrano, start Depakote 250 mg iv q6 hours. f/u EEG. Depakote level in AM-49 Discussed with the neurologist Will start oral Depakote 500 mg twice daily . Elevated troponin Troponin elevated at presentation, EKG at admission with no acute ST-T changes, no chest pain. 01/11 echo: Ejection fraction 50 to 55%, normal left ventricular wall motion. Normal right ventricular systolic function. Will continue to monitor, likely 2/2 acute stress vs muscular stress (CPK nearing rhabdo level) Repeat EKG w/ no acute ST-T changes. Curbside d/w cardio 01/12, no further recs. Other chronic medical conditions: HLD, mood disorder, GERD, HTN, history of cerebrovascular accident, elevated troponin Continue with/resume home meds as and when appropriate. Prolonged QTC 523, avoid QT prolonging drugs. Follow-up EKG as needed. SANDY Mirtazapine per Neuro 01/12/22. DVT prophylaxis: Heparin subcu Admission and Anticipated Discharge Date Admission Date: January 10, 2022 Subjective 01/14/2022 Patient was seen and examined in medical floor He has significant dementia and denies any symptoms Requiring 2 people to feed him Has been waiting to go to a fci 01/15/2022 The patient was seen and examined in medical floor He has been in deep sleep and responded to opening eyes during examination He did not have any food and medications today He remained hemodynamically stable though Review of Systems Review of Systems: Unobtainable due to cognitive status Physical Exam Physical Exam: Lying in bed in deep sleep and is very difficult to arouse Constitutional: average body habitus; not ill appearing Eyes: PERRL, conjunctivae normal, anicteric sclerae ENMT: external ear and nose normal, oropharynx normal Neck: trachea midline, no thyromegaly Respiratory: no respiratory distress Auscultation: lungs clear to auscultation bilaterally; no crackles Cardiovascular: Rate/Rhythm: regular rate and regular rhythm; not tachycardic Heart Sounds: normal S1 and normal S2; no murmur Extremities: no edema Gastrointestinal (Abdomen): Inspection/Auscultation: normal bowel sounds; abdomen not distended Percussion/Palpation: abdomen soft; abdomen nontender Musculoskeletal: No acute arthritis in any joint Neurologic: Alert and awake with deep stimuli and vocal commands. Not been communicating Results & Data Results & Data ([facility]) Vital Signs (Past 12 Hours) Vital Signs Temp Pulse Resp BP Pulse Ox 01/15/22 08:03 36.5 C 69 16 140/81 94 Laboratory Results BMP 01/15/22 07:32 Sodium 143 Potassium 3.5 Chloride 108 H Carbon Dioxide 27 BUN 15 Creatinine 0.54 L Glucose 83 Calcium 8.5 Medications Administered Current Inpatient Medications Acetaminophen (Acetaminophen 325 Mg Tab) 650 mg PO Q4H PRN PRN Reason: pain/fever Stop: 02/09/22 14:59 Amoxicillin/Clavulanate Potassium (Amoxicillin/Clavulanate 875 Mg Tab) 1 tab PO BIDM [facility] Stop: 01/22/22 16:59 Aspirin (Aspirin 81 Mg Ectab) 81 mg PO QAM [facility] Stop: 02/10/22 08:59 Last Admin: 01/15/22 11:25 Dose: Not Given Documented by: Atorvastatin Calcium (Atorvastatin 10 Mg Tab) 10 mg PO QAM [facility] Stop: 02/10/22 08:59 Last Admin: 01/15/22 11:25 Dose: Not Given Documented by: Dicyclomine HCl (Dicyclomine Hcl 10 Mg Cap) 10 mg PO TID AMANDO Stop: 02/09/22 14:59 Last Admin: 01/15/22 14:03 Dose: Not Given Documented by: Donepezil HCl (Donepezil Hcl 10 Mg Tab) 10 mg PO DAILY AMANDO Stop: 02/10/22 08:59 Last Admin: 01/15/22 11:26 Dose: Not Given Documented by: Heparin Sodium (Porcine) (Heparin Sod 5,000 Unit/0.5 Ml Vial) 5,000 units SQ Q12 AMANDO Stop: 02/09/22 20:59 Last Admin: 01/15/22 09:49 Dose: 5,000 units Documented by: Lactobacillus Acidophilus (Advanced Probiotic 1250 Mg Capsule) 2 cap PO DAILY AMANDO Stop: 02/10/22 08:59 Last Admin: 01/15/22 11:26 Dose: Not Given Documented by: Melatonin (Melatonin 3 Mg Tab) 6 mg PO HS AMANDO Stop: 02/10/22 20:59 Last Admin: 01/14/22 21:42 Dose: Not Given Documented by: Olanzapine (Olanzapine 10 Mg/2.1 Ml Sdv) 2.5 mg IM Q8H PRN PRN Reason: Anxiety/Agitation Stop: 02/10/22 17:59 Last Admin: 01/14/22 19:17 Dose: 2.5 mg Documented by: Pantoprazole Sodium (Pantoprazole 40 Mg Tab) 40 mg PO DAILY [facility] Stop: 02/10/22 08:59 Last Admin: 01/15/22 11:26 Dose: Not Given Documented by: Valproic Acid (Valproic Acid Soln 500 Mg/10 Ml Udc) 500 mg PO BID [facility] Stop: 02/14/22 20:59 (1) Dementia Dementia behavioral disturbance: without behavioral disturbance Dementia type: unspecified type Qualified Code(s): F03.90 - Unspecified dementia without behavioral disturbance
[2022-01-15] MEDS: AMOXICILLIN/CLAVULANATE 875 MG TAB PO SCH (17:23)
[2022-01-15] MEDS: VALPROIC ACID SOLN 500 MG/10 ML UDC PO SCH (20:32)
[2022-01-15] MEDS: MELATONIN 3 MG TAB PO SCH (20:32)
[2022-01-15] MEDS ORDERED: DIVALPROEX EXTENDED RELEASE 500 MG TAB PO SCH (21:00)
[2022-01-15] MEDS: OLANZapine 10 MG/2.1 ML SDV IM PRN (22:33)
[2022-01-16 06:51] LABS: BUN Creatinine Ratio 33.3 (10-20); Creatinine Clr Calc Pharmacy 96.2 ml/min; Est GFR (African American) 114.1 ml/min; Est GFR (Non-African American) 98.5 ml/min; Potassium 3.5 mmol/L (3.5-5.1)
[2022-01-16] MEDS: VALPROIC ACID SOLN 500 MG/10 ML UDC PO SCH ×2 (09:14→20:51)
[2022-01-16] MEDS: PANTOprazole 40 MG TAB PO SCH (09:14)
[2022-01-16] MEDS: HEPARIN SOD 5,000 UNIT/0.5 ML VIAL SQ SCH ×2 (09:14→20:54)
[2022-01-16] MEDS: DICYCLOMINE HCL 10 MG CAP PO SCH ×3 (09:15→20:52)
[2022-01-16] MEDS: AMOXICILLIN/CLAVULANATE 875 MG TAB PO SCH ×2 (09:15→18:27)
[2022-01-16] MEDS: DONEPEZIL HCL 10 MG TAB PO SCH (09:15)
[2022-01-16] MEDS: ASPIRIN 81 MG ECTAB PO SCH (09:15)
[2022-01-16] MEDS: ADVANCED PROBIOTIC 1250 MG CAPSULE PO SCH (09:15)
[2022-01-16] MEDS: ATORVASTATIN 10 MG TAB PO SCH (09:15)
[2022-01-16] MEDS ORDERED: OLANZapine ZYDIS 5 MG ORALLY DIS. TAB PO PRN (12:12)
--- NOTE | 2022-01-16 12:40 | Hospitalist Progress Note ---
Date of Service January 16, 2022 Assessment & Plan (1) Seizure-like activity: (2) Dementia: Plan: 71-year-old male with past medical history significant of hypercholesterolemia, hypertension, history of CVA, history of GERD, history of mood disorder, history of dementia without behavioral disturbance, comes 01/11 to our ED with confusion. He is being managed for the following: Confusion-Acute Metabolic Encephalopathy Complicated by Worsening dementia Presented to the ED 01/10 by EMS after being noted and found by neighbors that he was lying in their wood pile. Patient had recent neuropsychological test from 09/17/2021 at [facility] by Dr. Fonseca. It looks like he has at least major neurocognitive disorder, unspecified, of moderate severity; particularly affecting his executive function/motor control/memory and alternative attention impulsivity and conceptualization. It looks like the patient's medication citalopram was changed to mirtazapine, and he was also on donepezil and Namenda was added.The patient lives alone. Sister checks on him. Sister says after starting Namenda he got more hallucinations. So Namenda was stopped by family, the pt was doing OK per sister until 4 days ago [employer]. Pt is noted to have some ambulatory dysfunction lately,also seems lately requiring more assistance with feeding and dressing. Has periodic acute confusion with occasional hesitation Otherwise remained stable with history of profound dementia Awaiting placement Admitting CT head no acute finding. Admitting urinalysis WNL. MRI brain to rule out TIA. Will be difficult to get one. Neurology consult, appreciate recs. Social Service to help with discharge planning. The patient may need more help at home versus jail placement. Monitor for delirium Semiconsciousness Remains in deep sleep since this morning Difficult to arouse and is opening eyes with commands but did not eat or drink Remained hemodynamically stable CAT scan of the head did not show any acute events The patient has not been sleeping for the last few days Will monitor in the hospital POA is aware Complete recovery from that difficult to arouse position-likely he was in deep sleep and did not have any scan and/or lab abnormalities Aspiration Pneumonia ,not POA RLL Pna: likely aspiration, on CXR 01/12, 01/11 zosyn, continue ATB, speech eval noted. Appreciate speech evaluation and recommendation-May need more assistance with feeding Will finish the course of antibiotic Seizure like activity Pt noted to have spastic/involuntary movement of upper extremities and then followed by lower extremities for 5-10 seconds at a time during the day 01/11 01/11 Discussed with Pt's sister Aurea [phone] , no h/o seizure, no alcohol consumption. No alcohol/beer bottles found at home. Neurology evaluated, SANDY Serrano, start Depakote 250 mg iv q6 hours. f/u EEG. Depakote level in AM-49 Discussed with the neurologist Will start oral Depakote 500 mg twice daily Depakote level is good . Elevated troponin Troponin elevated at presentation, EKG at admission with no acute ST-T changes, no chest pain. 01/11 echo: Ejection fraction 50 to 55%, normal left ventricular wall motion. Normal right ventricular systolic function. Will continue to monitor, likely 2/2 acute stress vs muscular stress (CPK nearing rhabdo level) Repeat EKG w/ no acute ST-T changes. Curbside d/w cardio 01/12, no further recs. Other chronic medical conditions: HLD, mood disorder, GERD, HTN, history of cerebrovascular accident, elevated troponin Continue with/resume home meds as and when appropriate. Prolonged QTC 523, avoid QT prolonging drugs. Follow-up EKG as needed. DC Mirtazapine per Neuro 01/12/22. DVT prophylaxis: Heparin subcu Admission and Anticipated Discharge Date Admission Date: January 10, 2022 Subjective 01/14/2022 Patient was seen and examined in medical floor He has significant dementia and denies any symptoms Requiring 2 people to feed him Has been waiting to go to a jail 01/15/2022 The patient was seen and examined in medical floor He has been in deep sleep and responded to opening eyes during examination He did not have any food and medications today He remained hemodynamically stable though 01/16/2022 The patient was seen and examined in medical floor He required 1 dose of intramuscular Zyprexa last night and now is on one-to-one sitter He remained pleasantly confused with severe dementia but not any agitation Has had his diet and denies any significant symptoms Review of Systems Review of Systems: Unobtainable due to cognitive status Physical Exam Physical Exam: Lying in bed without any acute distress Constitutional: average body habitus; not ill appearing Eyes: PERRL, conjunctivae normal, anicteric sclerae ENMT: external ear and nose normal, oropharynx normal Neck: trachea midline, no thyromegaly Respiratory: no respiratory distress Auscultation: lungs clear to auscultation bilaterally; no crackles Cardiovascular: Rate/Rhythm: regular rate and regular rhythm; not tachycardic Heart Sounds: normal S1 and normal S2; no murmur Extremities: no edema Gastrointestinal (Abdomen): Inspection/Auscultation: normal bowel sounds; abdomen not distended Percussion/Palpation: abdomen soft; abdomen nontender Musculoskeletal: No acute arthritis in any joint Neurologic: Alert and awake. Very confused without any Psychiatric: Insight: + severely impaired insight Lymphatic: no cervical or axillary lymphadenopathy Results & Data Results & Data ([facility]) Vital Signs (Past 12 Hours) Vital Signs Temp Pulse Resp BP Pulse Ox 01/16/22 07:14 37.1 C 77 15 168/85 H 97 Laboratory Results [facility] 01/16/22 05:48 Sodium 142 Potassium 3.5 Chloride 106 Carbon Dioxide 28 BUN 21 Creatinine 0.63 Glucose 80 Calcium 9.0 Medications Administered Current Inpatient Medications Acetaminophen (Acetaminophen 325 Mg Tab) 650 mg PO Q4H PRN PRN Reason: pain/fever Stop: 02/09/22 14:59 Amoxicillin/Clavulanate Potassium (Amoxicillin/Clavulanate 875 Mg Tab) 1 tab PO BIDM [facility] Stop: 01/22/22 16:59 Last Admin: 01/16/22 09:15 Dose: 1 tab Documented by: Aspirin (Aspirin 81 Mg Ectab) 81 mg PO QAM [facility] Stop: 02/10/22 08:59 Last Admin: 01/16/22 09:15 Dose: 81 mg Documented by: Atorvastatin Calcium (Atorvastatin 10 Mg Tab) 10 mg PO QAM [facility] Stop: 02/10/22 08:59 Last Admin: 01/16/22 09:15 Dose: 10 mg Documented by: Dicyclomine HCl (Dicyclomine Hcl 10 Mg Cap) 10 mg PO TID [facility] Stop: 02/09/22 14:59 Last Admin: 01/16/22 09:15 Dose: 10 mg Documented by: Donepezil HCl (Donepezil Hcl 10 Mg Tab) 10 mg PO DAILY [facility] Stop: 02/10/22 08:59 Last Admin: 01/16/22 09:15 Dose: 10 mg Documented by: Heparin Sodium (Porcine) (Heparin Sod 5,000 Unit/0.5 Ml Vial) 5,000 units SQ Q12 [facility] Stop: 02/09/22 20:59 Last Admin: 01/16/22 09:14 Dose: 5,000 units Documented by: Lactobacillus Acidophilus (Advanced Probiotic 1250 Mg Capsule) 2 cap PO DAILY [facility] Stop: 02/10/22 08:59 Last Admin: 01/16/22 09:15 Dose: 2 cap Documented by: Melatonin (Melatonin 3 Mg Tab) 6 mg PO HS [facility] Stop: 02/10/22 20:59 Last Admin: 01/15/22 20:32 Dose: 6 mg Documented by: Olanzapine (Olanzapine Zydis 5 Mg Orally Dis. Tab) 5 mg PO BID PRN PRN Reason: Agitation Stop: 02/15/22 20:59 Pantoprazole Sodium (Pantoprazole 40 Mg Tab) 40 mg PO DAILY [facility] Stop: 02/10/22 08:59 Last Admin: 01/16/22 09:14 Dose: 40 mg Documented by: Valproic Acid (Valproic Acid Soln 500 Mg/10 Ml Udc) 500 mg PO BID [facility] Stop: 02/14/22 20:59 Last Admin: 01/16/22 09:14 Dose: 500 mg Documented by: (1) Dementia Dementia behavioral disturbance: without behavioral disturbance Dementia type: unspecified type Qualified Code(s): F03.90 - Unspecified dementia without behavioral disturbance
[2022-01-16] MEDS: MELATONIN 3 MG TAB PO SCH (20:52)
[2022-01-16] MEDS ORDERED: OLANZapine 10 MG/2.1 ML SDV IM STA (20:55)
[2022-01-16] MEDS ORDERED: LEVALBUTEROL HCL 1.25 MG/3 ML NEB NEB PRN (21:09)
[2022-01-17] MEDS: VALPROIC ACID SOLN 500 MG/10 ML UDC PO SCH ×2 (09:34→20:22)
[2022-01-17] MEDS: AMOXICILLIN/CLAVULANATE 875 MG TAB PO SCH ×2 (09:34→16:58)
[2022-01-17] MEDS: HEPARIN SOD 5,000 UNIT/0.5 ML VIAL SQ SCH ×2 (09:34→20:22)
[2022-01-17] MEDS: DONEPEZIL HCL 10 MG TAB PO SCH (09:34)
[2022-01-17] MEDS: DICYCLOMINE HCL 10 MG CAP PO SCH ×3 (09:34→20:21)
[2022-01-17] MEDS: ASPIRIN 81 MG ECTAB PO SCH (09:34)
[2022-01-17] MEDS: ADVANCED PROBIOTIC 1250 MG CAPSULE PO SCH (09:35)
[2022-01-17] MEDS: PANTOprazole 40 MG TAB PO SCH (09:35)
[2022-01-17] MEDS: ATORVASTATIN 10 MG TAB PO SCH (09:35)
--- NOTE | 2022-01-17 14:06 | Hospitalist Progress Note ---
Date of Service January 17, 2022 Assessment & Plan (1) Seizure-like activity: (2) Dementia: Plan: 71-year-old male with past medical history significant of hypercholesterolemia, hypertension, history of CVA, history of GERD, history of mood disorder, history of dementia without behavioral disturbance, comes 01/11 to our ED with confusion. He is being managed for the following: Confusion-Acute Metabolic Encephalopathy Complicated by Worsening dementia Presented to the ED 01/10 by EMS after being noted and found by neighbors that he was lying in their wood pile. Patient had recent neuropsychological test from 09/17/2021 at [place] by Dr. Fonseca. It looks like he has at least major neurocognitive disorder, unspecified, of moderate severity; particularly affecting his executive function/motor control/memory and alternative attention impulsivity and conceptualization. It looks like the patient's medication citalopram was changed to mirtazapine, and he was also on donepezil and Namenda was added.The patient lives alone. Sister checks on him. Sister says after starting Namenda he got more hallucinations. So Namenda was stopped by family, the pt was doing OK per sister until 4 days ago [employer]. Pt is noted to have some ambulatory dysfunction lately,also seems lately requiring more assistance with feeding and dressing. Has periodic acute confusion with occasional hesitation Otherwise remained stable with history of profound dementia Required 1 dose of oral Zyprexa last night Has been sleeping deeply since this morning and he is on Q15 minutes check Decreased the dose of Zyprexa Admitting CT head no acute finding. Admitting urinalysis WNL. MRI brain to rule out TIA. Will be difficult to get one. Neurology consult, appreciate recs. Social Service to help with discharge planning. The patient may need more help at home versus fci placement. Monitor for delirium Semiconsciousness Remains in deep sleep since this morning Difficult to arouse and is opening eyes with commands but did not eat or drink Remained hemodynamically stable CAT scan of the head did not show any acute events The patient has not been sleeping for the last few days Will monitor in the hospital POA is aware Complete recovery from that difficult to arouse position-likely he was in deep sleep and did not have any scan and/or lab abnormalities Has been sleeping a lot since this morning Aspiration Pneumonia ,not POA RLL Pna: likely aspiration, on CXR 01/12, 01/11 zosyn, continue ATB, speech eval noted. Appreciate speech evaluation and recommendation-May need more assistance with feeding Will finish the course of antibiotic Seizure like activity Pt noted to have spastic/involuntary movement of upper extremities and then followed by lower extremities for 5-10 seconds at a time during the day 01/11 01/11 Discussed with Pt's sister Aurea [phone] , no h/o seizure, no alcohol consumption. No alcohol/beer bottles found at home. Neurology evaluated, SANDY Serrano, start Depakote 250 mg iv q6 hours. f/u EEG. Depakote level in AM-49 Discussed with the neurologist Will start oral Depakote 500 mg twice daily Depakote level is good . Elevated troponin Troponin elevated at presentation, EKG at admission with no acute ST-T changes, no chest pain. 01/11 echo: Ejection fraction 50 to 55%, normal left ventricular wall motion. Normal right ventricular systolic function. Will continue to monitor, likely 2/2 acute stress vs muscular stress (CPK nearing rhabdo level) Repeat EKG w/ no acute ST-T changes. Curbside d/w cardio 01/12, no further recs. Other chronic medical conditions: HLD, mood disorder, GERD, HTN, history of cerebrovascular accident, elevated troponin Continue with/resume home meds as and when appropriate. Prolonged QTC 523, avoid QT prolonging drugs. Follow-up EKG as needed. SANDY Mirtazapine per Neuro 01/12/22. DVT prophylaxis: Heparin subcu Admission and Anticipated Discharge Date Admission Date: January 10, 2022 Subjective 01/14/2022 Patient was seen and examined in medical floor He has significant dementia and denies any symptoms Requiring 2 people to feed him Has been waiting to go to a fci 01/15/2022 The patient was seen and examined in medical floor He has been in deep sleep and responded to opening eyes during examination He did not have any food and medications today He remained hemodynamically stable though 01/16/2022 The patient was seen and examined in medical floor He required 1 dose of intramuscular Zyprexa last night and now is on one-to-one sitter He remained pleasantly confused with severe dementia but not any agitation Has had his diet and denies any significant symptoms 01/17/2022 The patient was seen and examined in medical floor He has been again sleeping a lot since this morning Has been off one-to-one sitter but being observed Q 15 minutes Review of Systems Review of Systems: Unobtainable due to cognitive status Physical Exam Physical Exam: Lying in bed comfortably and is sleeping Constitutional: average body habitus; not ill appearing Eyes: PERRL, conjunctivae normal, anicteric sclerae ENMT: external ear and nose normal, oropharynx normal Neck: trachea midline, no thyromegaly Respiratory: no respiratory distress Auscultation: lungs clear to auscultation bilaterally; no crackles Cardiovascular: Rate/Rhythm: regular rate and regular rhythm; not tachycardic Heart Sounds: normal S1 and normal S2; no murmur Extremities: no edema Gastrointestinal (Abdomen): Inspection/Auscultation: normal bowel sounds; abdomen not distended Percussion/Palpation: abdomen soft; abdomen nontender Musculoskeletal: No acute arthritis in any joint Neurologic: Difficult to arouse Psychiatric: Insight: + severely impaired insight Lymphatic: no cervical or axillary lymphadenopathy Results & Data Results & Data ([facility]) Vital Signs (Past 12 Hours) Vital Signs Temp Pulse Resp BP Pulse Ox 01/17/22 07:17 36.5 C 60 17 116/80 94 Medications Administered Current Inpatient Medications Acetaminophen (Acetaminophen 325 Mg Tab) 650 mg PO Q4H PRN PRN Reason: pain/fever Stop: 02/09/22 14:59 Amoxicillin/Clavulanate Potassium (Amoxicillin/Clavulanate 875 Mg Tab) 1 tab PO BIDM [facility] Stop: 01/22/22 16:59 Last Admin: 01/17/22 09:34 Dose: 1 tab Documented by: Aspirin (Aspirin 81 Mg Ectab) 81 mg PO QAM [facility] Stop: 02/10/22 08:59 Last Admin: 01/17/22 09:34 Dose: 81 mg Documented by: Atorvastatin Calcium (Atorvastatin 10 Mg Tab) 10 mg PO QAM [facility] Stop: 02/10/22 08:59 Last Admin: 01/17/22 09:35 Dose: 10 mg Documented by: Dicyclomine HCl (Dicyclomine Hcl 10 Mg Cap) 10 mg PO TID [facility] Stop: 02/09/22 14:59 Last Admin: 01/17/22 09:34 Dose: 10 mg Documented by: Donepezil HCl (Donepezil Hcl 10 Mg Tab) 10 mg PO DAILY [facility] Stop: 02/10/22 08:59 Last Admin: 01/17/22 09:34 Dose: 10 mg Documented by: Heparin Sodium (Porcine) (Heparin Sod 5,000 Unit/0.5 Ml Vial) 5,000 units SQ Q12 [facility] Stop: 02/09/22 20:59 Last Admin: 01/17/22 09:34 Dose: 5,000 units Documented by: Lactobacillus Acidophilus (Advanced Probiotic 1250 Mg Capsule) 2 cap PO DAILY [facility] Stop: 02/10/22 08:59 Last Admin: 01/17/22 09:35 Dose: 2 cap Documented by: Levalbuterol HCl (Levalbuterol Hcl 1.25 Mg/3 Ml Neb) 1.25 mg NEB Q6R PRN; Protocol PRN Reason: Shortness Of Breath Or Wheezing Stop: 02/16/22 00:59 Last Admin: 01/16/22 22:13 Dose: 1.25 mg Documented by: Melatonin (Melatonin 3 Mg Tab) 6 mg PO HS [facility] Stop: 02/10/22 20:59 Last Admin: 01/16/22 20:52 Dose: 6 mg Documented by: Olanzapine (Olanzapine Zydis 5 Mg Orally Dis. Tab) 5 mg PO BID PRN PRN Reason: Agitation Stop: 02/15/22 20:59 Last Admin: 01/16/22 19:14 Dose: 5 mg Documented by: Pantoprazole Sodium (Pantoprazole 40 Mg Tab) 40 mg PO DAILY [facility] Stop: 02/10/22 08:59 Last Admin: 01/17/22 09:35 Dose: 40 mg Documented by: Valproic Acid (Valproic Acid Soln 500 Mg/10 Ml Udc) 500 mg PO BID [facility] Stop: 02/14/22 20:59 Last Admin: 01/17/22 09:34 Dose: 500 mg Documented by: (1) Dementia Dementia behavioral disturbance: without behavioral disturbance Dementia type: unspecified type Qualified Code(s): F03.90 - Unspecified dementia without behavioral disturbance
[2022-01-17] MEDS: OLANZapine ZYDIS 5 MG ORALLY DIS. TAB PO PRN ×2 (17:00→22:56)
[2022-01-17] MEDS: MELATONIN 3 MG TAB PO SCH (20:22)
[2022-01-18] MEDS: DICYCLOMINE HCL 10 MG CAP PO SCH ×3 (10:51→20:48)
[2022-01-18] MEDS: VALPROIC ACID SOLN 500 MG/10 ML UDC PO SCH ×2 (10:51→20:48)
[2022-01-18] MEDS: DONEPEZIL HCL 10 MG TAB PO SCH (10:52)
[2022-01-18] MEDS: PANTOprazole 40 MG TAB PO SCH (10:53)
[2022-01-18] MEDS: ADVANCED PROBIOTIC 1250 MG CAPSULE PO SCH (10:53)
[2022-01-18] MEDS: ASPIRIN 81 MG ECTAB PO SCH (10:53)
[2022-01-18] MEDS: ATORVASTATIN 10 MG TAB PO SCH (10:53)
[2022-01-18] MEDS: AMOXICILLIN/CLAVULANATE 875 MG TAB PO SCH ×2 (10:54→18:09)
[2022-01-18] MEDS: HEPARIN SOD 5,000 UNIT/0.5 ML VIAL SQ SCH ×2 (10:54→20:48)
--- NOTE | 2022-01-18 14:32 | Hospitalist Progress Note ---
Date of Service January 18, 2022 Assessment & Plan (1) Seizure-like activity: (2) Dementia: Plan: 71-year-old male with past medical history significant of hypercholesterolemia, hypertension, history of CVA, history of GERD, history of mood disorder, history of dementia without behavioral disturbance, comes 01/11 to our ED with confusion. He is being managed for the following: Confusion-Acute Metabolic Encephalopathy Complicated by Worsening dementia Presented to the ED 01/10 by EMS after being noted and found by neighbors that he was lying in their wood pile. Patient had recent neuropsychological test from 09/17/2021 at [facility] by Dr. Fonseca. It looks like he has at least major neurocognitive disorder, unspecified, of moderate severity; particularly affecting his executive function/motor control/memory and alternative attention impulsivity and conceptualization. It looks like the patient's medication citalopram was changed to mirtazapine, and he was also on donepezil and Namenda was added.The patient lives alone. Sister checks on him. Sister says after starting Namenda he got more hallucinations. So Namenda was stopped by family, the pt was doing OK per sister until 4 days ago [employer]. Pt is noted to have some ambulatory dysfunction lately,also seems lately requiring more assistance with feeding and dressing. Has periodic acute confusion with occasional hesitation Otherwise remained stable with history of profound dementia Required 1 dose of oral Zyprexa last night Has been sleeping deeply since this morning and he is on Q15 minutes check Decreased the dose of Zyprexa Will give a dose of Zyprexa at night Admitting CT head no acute finding. Admitting urinalysis WNL. MRI brain to rule out TIA. Will be difficult to get one. Neurology consult, appreciate recs. Social Service to help with discharge planning. The patient may need more help at home versus shelter placement. Monitor for delirium Semiconsciousness Remains in deep sleep since this morning Difficult to arouse and is opening eyes with commands but did not eat or drink Remained hemodynamically stable CAT scan of the head did not show any acute events The patient has not been sleeping for the last few days Will monitor in the hospital POA is aware Complete recovery from that difficult to arouse position-likely he was in deep sleep and did not have any scan and/or lab abnormalities Has been sleeping a lot since this morning Remained stable but has been sleeping a lot Aspiration Pneumonia ,not POA RLL Pna: likely aspiration, on CXR 01/12, 01/11 zosyn, continue ATB, speech eval noted. Appreciate speech evaluation and recommendation-May need more assistance with feeding Will finish the course of antibiotic Seizure like activity Pt noted to have spastic/involuntary movement of upper extremities and then followed by lower extremities for 5-10 seconds at a time during the day 01/11 01/11 Discussed with Pt's sister Aurea [phone] , no h/o seizure, no alcohol consumption. No alcohol/beer bottles found at home. Neurology evaluated, SANDY Serrano, start Depakote 250 mg iv q6 hours. f/u EEG. Depakote level in AM-49 Discussed with the neurologist Will start oral Depakote 500 mg twice daily Depakote level is good . Elevated troponin Troponin elevated at presentation, EKG at admission with no acute ST-T changes, no chest pain. 01/11 echo: Ejection fraction 50 to 55%, normal left ventricular wall motion. Normal right ventricular systolic function. Will continue to monitor, likely 2/2 acute stress vs muscular stress (CPK nearing rhabdo level) Repeat EKG w/ no acute ST-T changes. Curbside d/w cardio 01/12, no further recs. Other chronic medical conditions: HLD, mood disorder, GERD, HTN, history of cerebrovascular accident, elevated troponin Continue with/resume home meds as and when appropriate. Prolonged QTC 523, avoid QT prolonging drugs. Follow-up EKG as needed. SANDY Mirtazapine per Neuro 01/12/22. DVT prophylaxis: Heparin subcu Admission and Anticipated Discharge Date Admission Date: January 10, 2022 Subjective 01/14/2022 Patient was seen and examined in medical floor He has significant dementia and denies any symptoms Requiring 2 people to feed him Has been waiting to go to a shelter 01/15/2022 The patient was seen and examined in medical floor He has been in deep sleep and responded to opening eyes during examination He did not have any food and medications today He remained hemodynamically stable though 01/16/2022 The patient was seen and examined in medical floor He required 1 dose of intramuscular Zyprexa last night and now is on one-to-one sitter He remained pleasantly confused with severe dementia but not any agitation Has had his diet and denies any significant symptoms 01/17/2022 The patient was seen and examined in medical floor He has been again sleeping a lot since this morning Has been off one-to-one sitter but being observed Q 15 minutes 01/18/2022 Required 1 dose of oral Zyprexa last night Has been sleeping heavily since this morning Usually gets agitated at night-we will start regular dose of Zyprexa at night Review of Systems Review of Systems: Unobtainable due to cognitive status Physical Exam Physical Exam: Lying in bed comfortably and is sleeping Constitutional: average body habitus; not ill appearing Eyes: PERRL, conjunctivae normal, anicteric sclerae ENMT: external ear and nose normal, oropharynx normal Neck: trachea midline, no thyromegaly Respiratory: no respiratory distress Auscultation: lungs clear to auscultation bilaterally; no crackles Cardiovascular: Rate/Rhythm: regular rate and regular rhythm; not tachycardic Heart Sounds: normal S1 and normal S2; no murmur Extremities: no edema Gastrointestinal (Abdomen): Inspection/Auscultation: normal bowel sounds; abdomen not distended Percussion/Palpation: abdomen soft; abdomen nontender Musculoskeletal: No acute arthritis involving any joint Neurologic: Severely demented without any acute agitation Psychiatric: Insight: + severely impaired insight Lymphatic: no cervical or axillary lymphadenopathy Results & Data Results & Data ([facility]) Vital Signs (Past 12 Hours) Vital Signs Temp Pulse Resp BP Pulse Ox 01/18/22 07:26 36.7 C 73 16 142/85 H 98 Medications Administered Current Inpatient Medications Acetaminophen (Acetaminophen 325 Mg Tab) 650 mg PO Q4H PRN PRN Reason: pain/fever Stop: 02/09/22 14:59 Amoxicillin/Clavulanate Potassium (Amoxicillin/Clavulanate 875 Mg Tab) 1 tab PO BIDM [facility] Stop: 01/22/22 16:59 Last Admin: 01/18/22 10:54 Dose: 1 tab Documented by: Aspirin (Aspirin 81 Mg Ectab) 81 mg PO QAM [facility] Stop: 02/10/22 08:59 Last Admin: 01/18/22 10:53 Dose: 81 mg Documented by: Atorvastatin Calcium (Atorvastatin 10 Mg Tab) 10 mg PO QAM [facility] Stop: 02/10/22 08:59 Last Admin: 01/18/22 10:53 Dose: 10 mg Documented by: Dicyclomine HCl (Dicyclomine Hcl 10 Mg Cap) 10 mg PO TID [facility] Stop: 02/09/22 14:59 Last Admin: 01/18/22 10:51 Dose: 10 mg Documented by: Donepezil HCl (Donepezil Hcl 10 Mg Tab) 10 mg PO DAILY [facility] Stop: 02/10/22 08:59 Last Admin: 01/18/22 10:52 Dose: 10 mg Documented by: Heparin Sodium (Porcine) (Heparin Sod 5,000 Unit/0.5 Ml Vial) 5,000 units SQ Q12 [facility] Stop: 02/09/22 20:59 Last Admin: 01/18/22 10:54 Dose: 5,000 units Documented by: Lactobacillus Acidophilus (Advanced Probiotic 1250 Mg Capsule) 2 cap PO DAILY [facility] Stop: 02/10/22 08:59 Last Admin: 01/18/22 10:53 Dose: 2 cap Documented by: Levalbuterol HCl (Levalbuterol Hcl 1.25 Mg/3 Ml Neb) 1.25 mg NEB Q6R PRN; Protocol PRN Reason: Shortness Of Breath Or Wheezing Stop: 02/16/22 00:59 Last Admin: 01/16/22 22:13 Dose: 1.25 mg Documented by: Melatonin (Melatonin 3 Mg Tab) 6 mg PO HS [facility] Stop: 02/10/22 20:59 Last Admin: 01/17/22 20:22 Dose: 6 mg Documented by: Olanzapine (Olanzapine Zydis 5 Mg Orally Dis. Tab) 2.5 mg PO BID PRN PRN Reason: Agitation Stop: 02/15/22 20:59 Last Admin: 01/17/22 22:56 Dose: 2.5 mg Documented by: Pantoprazole Sodium (Pantoprazole 40 Mg Tab) 40 mg PO DAILY [facility] Stop: 02/10/22 08:59 Last Admin: 01/18/22 10:53 Dose: 40 mg Documented by: Valproic Acid (Valproic Acid Soln 500 Mg/10 Ml Udc) 500 mg PO BID [facility] Stop: 02/14/22 20:59 Last Admin: 01/18/22 10:51 Dose: 500 mg Documented by: (1) Dementia Dementia behavioral disturbance: without behavioral disturbance Dementia type: unspecified type Qualified Code(s): F03.90 - Unspecified dementia without behavioral disturbance
[2022-01-18] MEDS: MELATONIN 3 MG TAB PO SCH (20:48)
[2022-01-18] MEDS: OLANZapine ZYDIS 5 MG ORALLY DIS. TAB PO SCH (20:48)
[2022-01-19] MEDS: DICYCLOMINE HCL 10 MG CAP PO SCH ×3 (09:29→20:09)
[2022-01-19] MEDS: ATORVASTATIN 10 MG TAB PO SCH (09:29)
[2022-01-19] MEDS: ASPIRIN 81 MG ECTAB PO SCH (09:29)
[2022-01-19] MEDS: PANTOprazole 40 MG TAB PO SCH (09:29)
[2022-01-19] MEDS: DONEPEZIL HCL 10 MG TAB PO SCH (09:29)
[2022-01-19] MEDS: ADVANCED PROBIOTIC 1250 MG CAPSULE PO SCH (09:29)
[2022-01-19] MEDS: AMOXICILLIN/CLAVULANATE 875 MG TAB PO SCH ×2 (09:29→17:33)
[2022-01-19] MEDS: HEPARIN SOD 5,000 UNIT/0.5 ML VIAL SQ SCH ×2 (09:30→20:10)
[2022-01-19] MEDS: VALPROIC ACID SOLN 500 MG/10 ML UDC PO SCH ×2 (09:30→20:09)
--- NOTE | 2022-01-19 15:48 | Hospitalist Progress Note ---
Date of Service January 19, 2022 Assessment & Plan (1) Seizure-like activity: (2) Dementia: Plan: 71-year-old male with past medical history significant of hypercholesterolemia, hypertension, history of CVA, history of GERD, history of mood disorder, history of dementia without behavioral disturbance, comes 01/11 to our ED with confusion. He is being managed for the following: Confusion-Acute Metabolic Encephalopathy Complicated by Worsening dementia Presented to the ED 01/10 by EMS after being noted and found by neighbors that he was lying in their wood pile. Patient had recent neuropsychological test from 09/17/2021 at [facility] [address] Fonseca. It looks like he has at least major neurocognitive disorder, unspecified, of moderate severity; particularly affecting his executive function/motor control/memory and alternative attention impulsivity and conceptualization. It looks like the patient's medication citalopram was changed to mirtazapine, and he was also on donepezil and Namenda was added.The patient lives alone. Sister checks on him. Sister says after starting Namenda he got more hallucinations. So Namenda was stopped by family, the pt was doing OK per sister until 4 days ago [employer]. Pt is noted to have some ambulatory dysfunction lately,also seems lately requiring more assistance with feeding and dressing. Has periodic acute confusion with occasional hesitation Otherwise remained stable with history of profound dementia Required 1 dose of oral Zyprexa last night Has been sleeping deeply since this morning and he is on Q15 minutes check Decreased the dose of Zyprexa Will give a dose of Zyprexa at night Remains stable without any agitation and did not require any intramuscular Zyprexa last night and night before which has been discontinued Likely to be transferred to the facility tomorrow Admitting CT head no acute finding. Admitting urinalysis WNL. MRI brain to rule out TIA. Will be difficult to get one. Neurology consult, appreciate recs. Social Service to help with discharge planning. The patient may need more help at home versus long term placement. Monitor for delirium No acute delirium Semiconsciousness Remains in deep sleep since this morning Difficult to arouse and is opening eyes with commands but did not eat or drink Remained hemodynamically stable CAT scan of the head did not show any acute events The patient has not been sleeping for the last few days Will monitor in the hospital POA is aware Complete recovery from that difficult to arouse position-likely he was in deep sleep and did not have any scan and/or lab abnormalities Has been sleeping a lot since this morning Remained stable but has been sleeping a lot Aspiration Pneumonia ,not POA RLL Pna: likely aspiration, on CXR 01/12, 01/11 zosyn, continue ATB, speech eval noted. Appreciate speech evaluation and recommendation-May need more assistance with feeding Will finish the course of antibiotic Seizure like activity Pt noted to have spastic/involuntary movement of upper extremities and then followed by lower extremities for 5-10 seconds at a time during the day 01/11 01/11 Discussed with Pt's sister Aurea [phone] , no h/o seizure, no alcohol consumption. No alcohol/beer bottles found at home. Neurology evaluated, SANDY Serrano, start Depakote 250 mg iv q6 hours. f/u EEG. Depakote level in AM-49 Discussed with the neurologist Will start oral Depakote 500 mg twice daily Depakote level is good . Elevated troponin Troponin elevated at presentation, EKG at admission with no acute ST-T changes, no chest pain. 01/11 echo: Ejection fraction 50 to 55%, normal left ventricular wall motion. Normal right ventricular systolic function. Will continue to monitor, likely 2/2 acute stress vs muscular stress (CPK nearing rhabdo level) Repeat EKG w/ no acute ST-T changes. Curbside d/w cardio 01/12, no further recs. Other chronic medical conditions: HLD, mood disorder, GERD, HTN, history of cerebrovascular accident, elevated troponin Continue with/resume home meds as and when appropriate. Prolonged QTC 523, avoid QT prolonging drugs. Follow-up EKG as needed. SANDY Mirtazapine per Neuro 01/12/22. DVT prophylaxis: Heparin subcu Admission and Anticipated Discharge Date Admission Date: January 10, 2022 Subjective 01/14/2022 Patient was seen and examined in medical floor He has significant dementia and denies any symptoms Requiring 2 people to feed him Has been waiting to go to a long term 01/15/2022 The patient was seen and examined in medical floor He has been in deep sleep and responded to opening eyes during examination He did not have any food and medications today He remained hemodynamically stable though 01/16/2022 The patient was seen and examined in medical floor He required 1 dose of intramuscular Zyprexa last night and now is on one-to-one sitter He remained pleasantly confused with severe dementia but not any agitation Has had his diet and denies any significant symptoms 01/17/2022 The patient was seen and examined in medical floor He has been again sleeping a lot since this morning Has been off one-to-one sitter but being observed Q 15 minutes 01/18/2022 Required 1 dose of oral Zyprexa last night Has been sleeping heavily since this morning Usually gets agitated at night-we will start regular dose of Zyprexa at night 01/19/2022 The patient was seen and examined in medical floor This is the best day that I have seen with him He has been talking almost normally and not so confused Review of Systems Review of Systems: Unobtainable due to cognitive status Physical Exam Physical Exam: Lying in bed comfortably and is sleeping Constitutional: average body habitus; not ill appearing Eyes: PERRL, conjunctivae normal, anicteric sclerae ENMT: external ear and nose normal, oropharynx normal Neck: trachea midline, no thyromegaly Respiratory: no respiratory distress Auscultation: lungs clear to auscultation bilaterally; no crackles Cardiovascular: Rate/Rhythm: regular rate and regular rhythm; not tachycardic Heart Sounds: normal S1 and normal S2; no murmur Extremities: no edema Gastrointestinal (Abdomen): Inspection/Auscultation: normal bowel sounds; abdomen not distended Percussion/Palpation: abdomen soft; abdomen nontender Musculoskeletal: No acute arthritis in any joint Neurologic: Alert and awake. Pleasantly confused. No agitation Psychiatric: Insight: + severely impaired insight Lymphatic: no cervical or axillary lymphadenopathy Results & Data Results & Data ([facility]) Vital Signs (Past 12 Hours) Vital Signs Temp Pulse Resp BP Pulse Ox 01/19/22 15:06 36.5 C 72 16 138/82 99 01/19/22 10:09 36.4 C L 70 16 121/74 97 Medications Administered Current Inpatient Medications Acetaminophen (Acetaminophen 325 Mg Tab) 650 mg PO Q4H PRN PRN Reason: pain/fever Stop: 02/09/22 14:59 Amoxicillin/Clavulanate Potassium (Amoxicillin/Clavulanate 875 Mg Tab) 1 tab PO BIDM [facility] Stop: 01/22/22 16:59 Last Admin: 01/19/22 09:29 Dose: 1 tab Documented by: Aspirin (Aspirin 81 Mg Ectab) 81 mg PO QAM [facility] Stop: 02/10/22 08:59 Last Admin: 01/19/22 09:29 Dose: 81 mg Documented by: Atorvastatin Calcium (Atorvastatin 10 Mg Tab) 10 mg PO QAM [facility] Stop: 02/10/22 08:59 Last Admin: 01/19/22 09:29 Dose: 10 mg Documented by: Dicyclomine HCl (Dicyclomine Hcl 10 Mg Cap) 10 mg PO TID [facility] Stop: 02/09/22 14:59 Last Admin: 01/19/22 15:00 Dose: 10 mg Documented by: Donepezil HCl (Donepezil Hcl 10 Mg Tab) 10 mg PO DAILY [facility] Stop: 02/10/22 08:59 Last Admin: 01/19/22 09:29 Dose: 10 mg Documented by: Heparin Sodium (Porcine) (Heparin Sod 5,000 Unit/0.5 Ml Vial) 5,000 units SQ Q12 [facility] Stop: 02/09/22 20:59 Last Admin: 01/19/22 09:30 Dose: 5,000 units Documented by: Lactobacillus Acidophilus (Advanced Probiotic 1250 Mg Capsule) 2 cap PO DAILY [facility] Stop: 02/10/22 08:59 Last Admin: 01/19/22 09:29 Dose: 2 cap Documented by: Levalbuterol HCl (Levalbuterol Hcl 1.25 Mg/3 Ml Neb) 1.25 mg NEB Q6R PRN; Protocol PRN Reason: Shortness Of Breath Or Wheezing Stop: 02/16/22 00:59 Last Admin: 01/16/22 22:13 Dose: 1.25 mg Documented by: Melatonin (Melatonin 3 Mg Tab) 6 mg PO HS [facility] Stop: 02/10/22 20:59 Last Admin: 01/18/22 20:48 Dose: 6 mg Documented by: Olanzapine (Olanzapine Zydis 5 Mg Orally Dis. Tab) 2.5 mg PO HS [facility] Stop: 02/17/22 20:59 Last Admin: 01/18/22 20:48 Dose: 2.5 mg Documented by: Pantoprazole Sodium (Pantoprazole 40 Mg Tab) 40 mg PO DAILY [facility] Stop: 02/10/22 08:59 Last Admin: 01/19/22 09:29 Dose: 40 mg Documented by: Valproic Acid (Valproic Acid Soln 500 Mg/10 Ml Udc) 500 mg PO BID [facility] Stop: 02/14/22 20:59 Last Admin: 01/19/22 09:30 Dose: 500 mg Documented by: (1) Dementia Dementia behavioral disturbance: without behavioral disturbance Dementia type: unspecified type Qualified Code(s): F03.90 - Unspecified dementia without behavioral disturbance
[2022-01-19] MEDS: OLANZapine ZYDIS 5 MG ORALLY DIS. TAB PO SCH (20:08)
[2022-01-19] MEDS: MELATONIN 3 MG TAB PO SCH (20:09)
[2022-01-20] MEDS: ASPIRIN 81 MG ECTAB PO SCH (11:37)
[2022-01-20] MEDS: DONEPEZIL HCL 10 MG TAB PO SCH (11:37)
[2022-01-20] MEDS: ADVANCED PROBIOTIC 1250 MG CAPSULE PO SCH (11:37)
[2022-01-20] MEDS: ATORVASTATIN 10 MG TAB PO SCH (11:37)
[2022-01-20] MEDS: VALPROIC ACID SOLN 500 MG/10 ML UDC PO SCH ×2 (11:37→20:33)
[2022-01-20] MEDS: HEPARIN SOD 5,000 UNIT/0.5 ML VIAL SQ SCH ×2 (11:38→20:35)
[2022-01-20] MEDS: AMOXICILLIN/CLAVULANATE 875 MG TAB PO SCH ×2 (11:38→17:22)
[2022-01-20] MEDS: DICYCLOMINE HCL 10 MG CAP PO SCH ×3 (11:38→20:33)
[2022-01-20] MEDS: PANTOprazole 40 MG TAB PO SCH (11:38)
--- NOTE | 2022-01-20 19:47 | Hospitalist Progress Note ---
Date of Service January 20, 2022 Assessment & Plan (1) Seizure-like activity: (2) Dementia: Plan: 71-year-old male with past medical history significant of hypercholesterolemia, hypertension, history of CVA, history of GERD, history of mood disorder, history of dementia without behavioral disturbance, comes 01/11 to our ED with confusion. He is being managed for the following: Confusion-Acute Metabolic Encephalopathy Complicated by Worsening dementia Presented to the ED 01/10 by EMS after being noted and found by neighbors that he was lying in their wood pile. Patient had recent neuropsychological test from 09/17/2021 at [facility] by Dr. Fonseca. It looks like he has at least major neurocognitive disorder, unspecified, of moderate severity; particularly affecting his executive function/motor control/memory and alternative attention impulsivity and conceptualization. It looks like the patient's medication citalopram was changed to mirtazapine, and he was also on donepezil and Namenda was added.The patient lives alone. Sister checks on him. Sister says after starting Namenda he got more hallucinations. So Namenda was stopped by family, the pt was doing OK per sister until 4 days ago CROCHETER. Pt is noted to have some ambulatory dysfunction lately,also seems lately requiring more assistance with feeding and dressing. Has periodic acute confusion with occasional hesitation Otherwise remained stable with history of profound dementia Required 1 dose of oral Zyprexa last night Has been sleeping deeply since this morning and he is on Q15 minutes check Decreased the dose of Zyprexa Will give a dose of Zyprexa at night Remains stable without any agitation and did not require any intramuscular Zyprexa last night and night before which has been discontinued No more aggressiveness and the patient wants to go home Discussed with the POA He remains medically stable to be discharged when accepted to the facility Admitting CT head no acute finding. Admitting urinalysis WNL. MRI brain to rule out TIA. Will be difficult to get one. Neurology consult, appreciate recs. Social Service to help with discharge planning. The patient may need more help at home versus fpc placement. Monitor for delirium No acute delirium He has been getting regular dose of oral Zyprexa to prevent any nighttime agitation Semiconsciousness Remains in deep sleep since this morning Difficult to arouse and is opening eyes with commands but did not eat or drink Remained hemodynamically stable CAT scan of the head did not show any acute events The patient has not been sleeping for the last few days Will monitor in the hospital POA is aware Complete recovery from that difficult to arouse position-likely he was in deep sleep and did not have any scan and/or lab abnormalities Has been sleeping a lot since this morning Remained stable but has been sleeping a lot He usually sleeps a lot and at times difficult to wake him up and this could be his usual behavior Aspiration Pneumonia ,not POA RLL Pna: likely aspiration, on CXR 01/12, 01/11 zosyn, continue ATB, speech eval noted. Appreciate speech evaluation and recommendation-May need more assistance with feeding Will finish the course of antibiotic . The antibiotic Seizure like activity Pt noted to have spastic/involuntary movement of upper extremities and then followed by lower extremities for 5-10 seconds at a time during the day 01/11 01/11 Discussed with Pt's sister Aurea [phone] , no h/o seizure, no alcohol consumption. No alcohol/beer bottles found at home. Neurology evaluated, SANDY Serrano, start Depakote 250 mg iv q6 hours. f/u EEG. Depakote level in AM-49 Discussed with the neurologist Will start oral Depakote 500 mg twice daily Depakote level is good . Elevated troponin Troponin elevated at presentation, EKG at admission with no acute ST-T changes, no chest pain. 01/11 echo: Ejection fraction 50 to 55%, normal left ventricular wall motion. Normal right ventricular systolic function. Will continue to monitor, likely 2/2 acute stress vs muscular stress (CPK nearing rhabdo level) Repeat EKG w/ no acute ST-T changes. Curbside d/w cardio 01/12, no further recs. Other chronic medical conditions: HLD, mood disorder, GERD, HTN, history of cerebrovascular accident, elevated troponin Continue with/resume home meds as and when appropriate. Prolonged QTC 523, avoid QT prolonging drugs. Follow-up EKG as needed. SANDY Mirtazapine per Neuro 01/12/22. DVT prophylaxis: Heparin subcu Admission and Anticipated Discharge Date Admission Date: January 10, 2022 Subjective 01/14/2022 Patient was seen and examined in medical floor He has significant dementia and denies any symptoms Requiring 2 people to feed him Has been waiting to go to a fpc 01/15/2022 The patient was seen and examined in medical floor He has been in deep sleep and responded to opening eyes during examination He did not have any food and medications today He remained hemodynamically stable though 01/16/2022 The patient was seen and examined in medical floor He required 1 dose of intramuscular Zyprexa last night and now is on one-to-one sitter He remained pleasantly confused with severe dementia but not any agitation Has had his diet and denies any significant symptoms 01/17/2022 The patient was seen and examined in medical floor He has been again sleeping a lot since this morning Has been off one-to-one sitter but being observed Q 15 minutes 01/18/2022 Required 1 dose of oral Zyprexa last night Has been sleeping heavily since this morning Usually gets agitated at night-we will start regular dose of Zyprexa at night 01/19/2022 The patient was seen and examined in medical floor This is the best day that I have seen with him He has been talking almost normally and not so confused 01/20/2022 The patient was seen and examined in medical floor He remains stable and has been waiting to be placed He will have repeat PT and OT evaluation prior to acceptance Discussed with POA who is agreeable with the plan Review of Systems Review of Systems: Unobtainable due to cognitive status Physical Exam Physical Exam: Lying in bed comfortably and is sleeping Constitutional: average body habitus; not ill appearing Eyes: PERRL, conjunctivae normal, anicteric sclerae ENMT: external ear and nose normal, oropharynx normal Neck: trachea midline, no thyromegaly Respiratory: no respiratory distress Auscultation: lungs clear to auscultation bilaterally; no crackles Cardiovascular: Rate/Rhythm: regular rate and regular rhythm; not tachycardic Heart Sounds: normal S1 and normal S2; no murmur Extremities: no edema Gastrointestinal (Abdomen): Inspection/Auscultation: normal bowel sounds; abdomen not distended Percussion/Palpation: abdomen soft; abdomen nontender Musculoskeletal: No acute arthritis in any joint Neurologic: Alert and awake Psychiatric: Insight: + severely impaired insight Lymphatic: no cervical or axillary lymphadenopathy Results & Data Results & Data ([facility]) Vital Signs (Past 12 Hours) Vital Signs Temp Pulse Resp BP Pulse Ox 01/20/22 15:53 37.0 C 78 16 122/67 99 Medications Administered Current Inpatient Medications Acetaminophen (Acetaminophen 325 Mg Tab) 650 mg PO Q4H PRN PRN Reason: pain/fever Stop: 02/09/22 14:59 Amoxicillin/Clavulanate Potassium (Amoxicillin/Clavulanate 875 Mg Tab) 1 tab PO BIDM [facility] Stop: 01/22/22 16:59 Last Admin: 01/20/22 17:22 Dose: 1 tab Documented by: Aspirin (Aspirin 81 Mg Ectab) 81 mg PO QAM [facility] Stop: 02/10/22 08:59 Last Admin: 01/20/22 11:37 Dose: 81 mg Documented by: Atorvastatin Calcium (Atorvastatin 10 Mg Tab) 10 mg PO QAM [facility] Stop: 02/10/22 08:59 Last Admin: 01/20/22 11:37 Dose: 10 mg Documented by: Dicyclomine HCl (Dicyclomine Hcl 10 Mg Cap) 10 mg PO TID [facility] Stop: 02/09/22 14:59 Last Admin: 01/20/22 13:49 Dose: 10 mg Documented by: Donepezil HCl (Donepezil Hcl 10 Mg Tab) 10 mg PO DAILY [facility] Stop: 02/10/22 08:59 Last Admin: 01/20/22 11:37 Dose: 10 mg Documented by: Heparin Sodium (Porcine) (Heparin Sod 5,000 Unit/0.5 Ml Vial) 5,000 units SQ Q12 [facility] Stop: 02/09/22 20:59 Last Admin: 01/20/22 11:38 Dose: Not Given Documented by: Lactobacillus Acidophilus (Advanced Probiotic 1250 Mg Capsule) 2 cap PO DAILY [facility] Stop: 02/10/22 08:59 Last Admin: 01/20/22 11:37 Dose: 2 cap Documented by: Levalbuterol HCl (Levalbuterol Hcl 1.25 Mg/3 Ml Neb) 1.25 mg NEB Q6R PRN; Protocol PRN Reason: Shortness Of Breath Or Wheezing Stop: 02/16/22 00:59 Last Admin: 01/16/22 22:13 Dose: 1.25 mg Documented by: Melatonin (Melatonin 3 Mg Tab) 6 mg PO HS [facility] Stop: 02/10/22 20:59 Last Admin: 01/19/22 20:09 Dose: 6 mg Documented by: Olanzapine (Olanzapine Zydis 5 Mg Orally Dis. Tab) 2.5 mg PO HS [facility] Stop: 02/17/22 20:59 Last Admin: 01/19/22 20:08 Dose: 2.5 mg Documented by: Pantoprazole Sodium (Pantoprazole 40 Mg Tab) 40 mg PO DAILY [facility] Stop: 02/10/22 08:59 Last Admin: 01/20/22 11:38 Dose: 40 mg Documented by: Valproic Acid (Valproic Acid Soln 500 Mg/10 Ml Udc) 500 mg PO BID [facility] Stop: 02/14/22 20:59 Last Admin: 01/20/22 11:37 Dose: 500 mg Documented by: (1) Dementia Dementia behavioral disturbance: without behavioral disturbance Dementia type: unspecified type Qualified Code(s): F03.90 - Unspecified dementia without behavioral disturbance
[2022-01-20] MEDS: OLANZapine ZYDIS 5 MG ORALLY DIS. TAB PO SCH (20:33)
[2022-01-20] MEDS: MELATONIN 3 MG TAB PO SCH (20:33)
[2022-01-21] MEDS: HEPARIN SOD 5,000 UNIT/0.5 ML VIAL SQ SCH (08:47)
[2022-01-21] MEDS: ATORVASTATIN 10 MG TAB PO SCH (08:48)
[2022-01-21] MEDS: ASPIRIN 81 MG ECTAB PO SCH (08:48)
[2022-01-21] MEDS: PANTOprazole 40 MG TAB PO SCH (08:48)
[2022-01-21] MEDS: DICYCLOMINE HCL 10 MG CAP PO SCH ×2 (08:48→12:38)
[2022-01-21] MEDS: DONEPEZIL HCL 10 MG TAB PO SCH (08:48)
[2022-01-21] MEDS: VALPROIC ACID SOLN 500 MG/10 ML UDC PO SCH (08:48)
[2022-01-21] MEDS: ADVANCED PROBIOTIC 1250 MG CAPSULE PO SCH (08:48)
--- NOTE | 2022-01-23 10:29 | Discharge Summary ---
Date of Service January 23, 2022 Principal Diagnosis Dementia Acute metabolic encephalopathy Aspiration pneumonia Demand ischemia Discharge Exam Patient on exam was sleeping soundly. Per nursing, he was awake earlier in day and had breakfast and lunch then just fell asleep. On exam, he is breathing comfortably on room air. Regular rate and rhythm. No abdominal distension. No leg swelling Discharge Data Allergies Allergy/AdvReac Type Severity Reaction Status Date / Time No Known Allergies Allergy Mild Verified 12/04/21 15:31 Consultations 01/10/22 11:40 ED Decision to Admit Stat 01/10/22 15:00 Consult Neurology Routine Ordered Studies 01/10/22 09:41 CT head/brain wo con Stat 01/13/22 00:13 MR brain wo/w con Routine 01/13/22 23:08 CT cervical spine wo con Urgent CT head/brain wo con Urgent 01/15/22 12:04 CT head/brain wo con Urgent Hospital Course (1) Seizure-like activity: (2) Dementia: 71-year-old male with past medical history significant of hyper cholesterolemia, hypertension, history of CVA, history of GERD, history of mood disorder, history of dementia without behavioral disturbance, comes 01/11 to our ED with confusion after being found by his neighbors laying on their wood pile. Hospital course by problem list as below. Confusion-Acute Metabolic Encephalopathy Complicated by Worsening dementia Patient had recent neuropsychological test from 09/17/2021 at [facility] by [address] Fonseca. It looks like he has at least major neurocognitive disorder, unspecified, of moderate severity; particularly affecting his executive function/motor control/memory and alternative attention impulsivity and conceptualization. It looks like the patient's medication citalopram was changed to mirtazapine, and he was also on donepezil and Namenda was added.The patient lives alone. Sister checks on him. Sister says after starting Namenda he got more hallucinations. So Namenda was stopped by family, the pt was doing OK per sister until 4 days ago prior to arrival. While here, he had a CT head which was negative for acute findings. MRI brain was also negative for acute findings but shows chronic microvascular disease. While here, he did have episodes of agitation and outbursts and required PRN medications so he was started on low dose zyprexa with stabilization of his mood. Aspiration Pneumonia ,not POA RLL Pna: likely aspiration, on CXR 5/23 Finished antibiotic course here Evaluated by SENIOR CARE PROVIDER and recommend assistance with feedings, easy to chew diet Seizure like activity Pt noted to have spastic/involuntary movement of upper extremities and then followed by lower extremities for 5-10 seconds at a time during the day 01/11 01/11 Discussed with Pt's sister Aurea [phone] , no h/o seizure, no alcohol consumption. No alcohol/beer bottles found at home. Neurology evaluated and he was started on Depakote 500mg BID. He will need to follow up with Neurology after discharge Demand Ischemia Troponin elevated at presentation, EKG at admission with no acute ST-T changes, no chest pain. 01/11 echo: Ejection fraction 50 to 55%, normal left ventricular wall motion. Normal right ventricular systolic function. Will continue to monitor, likely 2/2 acute stress vs muscular stress (CPK nearing rhabdo level) Repeat EKG w/ no acute ST-T changes Disposition -patient discharged to [facility] Total Time Total Time Spent Total Time Spent (In Minutes): 40 Discharge Plan Discharge Items Patient Disposition: Transfer Nursing Home Fac Reason For Visit: CONFUSION Discharge Diagnosis: Dementia Acute metabolic encephalopathy Aspiration pneumonia Demand ischemia Condition on Discharge: Fair Activity: Resume your previous activity Non-emergency contact: Primary Care Provider and Neurologist Call non-emergency contact if: you have any medication questions Follow-up/Referrals: Cristopher Chance MD [Physician] - John Barrios DO [Primary Care Provider] - Diet: Regular Diet Texture: Easy to Chew Addtl Attending Provider Instructions: Please follow up with your PCP for management of your dementia Pending Studies at Discharge: No Stand-Alone Forms: My [facility] Skilled Items Patient informed of condition?: Yes DNR: Yes Discharge Level of Care: Skilled Communicable Disease: No Discharge Prognosis: Stable Lines: None Urinary Catheter: No Medications and DC Order Prescriptions: New acetaminophen 325 mg Tablet 650 mg PO Q6H PRN (Reason: pain) 30 Days Qty: 30 RF: 0 aspirin 81 mg Tablet,Delayed Release (Dr/Ec) 81 mg PO QAM 30 Days Qty: 30 RF: 0 olanzapine 5 mg Tablet,Disintegrating 2.5 mg PO HS 30 Days Qty: 15 RF: 0 valproic acid 250 mg capsule 500 mg PO BID Qty: 60 RF: 0 melatonin 3 mg Tablet 6 mg PO HS 30 Days Qty: 60 RF: 0 Continued donepezil 10 mg tablet 10 mg PO DAILY RF: 0 pantoprazole 20 mg tablet,delayed release (DR/EC) 20 ea PO DAILY RF: 0 dicyclomine 10 mg Capsule 10 mg PO TID RF: 0 atorvastatin 10 mg tablet 10 mg PO QAM RF: 0 Discontinued ibuprofen 200 mg Capsule 200 mg PO UD PRN (Reason: Headache) RF: 0 mirtazapine 15 mg tablet 15 mg PO DAILY RF: 0 ciclopirox 8 % solution 1 applic TOPICAL DAILY RF: 0 loperamide 2 mg Tablet 2 mg PO DAILY RF: 0 ciclopirox 8 units RF: 0 Discharge Orders: Discharge Order (Routine); Ordered 01/21/22 Ordered By: Alex Castorena Admission Data Admit Date/Time: 01/10/22 12:27 Attending Provider: Alex Castorena Admit Provider: Mathieu Adorno Primary Care Provider: John Barrios Other Providers: Mathieu Adorno ; Cristopher Chance ; [place] ; [facility] ; Alysa Palma ; Anabella Jovel Other Interventions: Discharge Summary Assessment (RN) Last Done: 01/21/22 15:54
== END 2022-01-21 16:27 | DRG 884 ==
LOC: ED 09:27 → SUATTDRO 12:27 → 3E 12:27